=== PATIENT | female | born 1945 | race Asian ===

== ENCOUNTER 2024-05-24 10:58 | Outpatient (AMB) | payer MEDICARE, BC, SELFPAY ==
--- NOTE | 2024-05-24 11:02 | A.OFFVIS_ITS ---
Vital Signs 05/24/24 11:05 Height 4 ft 9 in Weight 111 lb BMI 24.0 BP 126/70 Blood Pressure Location Rt brachial Pulse 74 Pulse Source Pulse Oximeter Pulse Oximetry (%) 98 Oxygen Delivery Method Room Air Intake Visit Reasons: [id number] ENP-Movement Disorder Intake Note: patient referred by Dr. Santoro for movement disorder. MRI 08/01/22 scanned in referral Allergies No Known Allergies Allergy (Verified 05/24/24 11:06) Medication List - Last Reconciled 05/24/24 by Tanya Naidu MD cholecalciferol (vitamin D3) 25 mcg PO DAILY latanoprost 0.005% drps ophthalmic (eye) metoprolol succinate ER 100 mg PO DAILY nitroglycerin 0.3 mg sublingual Q5M PRN rosuvastatin 10 mg PO BEDTIME HPI Comments Details: 79y/o female comes for opinion regarding her progressive gait disorder.It started about 6 years ago -she felt her steps are shorter, she is stiff and slow. she also had multiple falls.she was seen at [facility] , had a trial of carbidopa/ levodopa for 3 months and had large volume LP with no response. she has some low back pain - sees [facility]. she denies any radiating pain. she has tingling in her feet when she is sleeping. No neck issues She denies any tremors. She denies any family h/o gait problems. she denies double vision , denies vertigo. SHe has occasional dizziness.she denies any speech or swallowing issues. Bowel movements are stable she has urinary urgency . she was seen by and Dr. Santoro at [facility]. 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 she used to do ballet and dancing as a child. 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 [facility] Medical History (Updated 05/24/24 @ 11:42 by Tanya Naidu MD) Gait abnormality Paraparesis Diarrhea Gait instability Glaucoma CAD (coronary artery disease) HTN (hypertension) Hyperlipidemia Surgical History History of heart artery stent H/O angioplasty Social History Alcohol intake: current Comment: occasional wine Patient Tobacco Use Status: Never used Tobacco Physical Exam Vital Signs: Last Vital Signs Pulse 74 05/24/24 11:05 BP 126/70 05/24/24 11:05 Pulse Ox 98 05/24/24 11:05 Oxygen Delivery Method Room Air 05/24/24 11:05 BMI result Body Mass Index 24.0 Const General: cooperative, healthy appearing, comfortable and no acute distress Nutritional Appearance: average body habitus Orientation/consciousness: patient oriented x3 Eyes Pupils: Equal, round and reactive pupils present Neuro Other: Gait- small steps guarded , narrow base , slow , drags her feet , like she has partial foot drop Dorsiflexion 4/5 plantar flexion 5/5 Mild increased tone rachid LE L>R Mild droopy eyelids General: patient oriented x3 and moves all extremities Cranial nerves: Yes Facial sensation intact/muscles of mastication intact, Yes E qual, round and reactive pupils present, Yes Bilaterally intact EOM present, Yes Nystagmus not present, Yes Normal facial strength present, Yes Midline tongue present, Yes Symmetric palate elevation present and Yes Ability to bilaterally elevate shoulders present Cognition (Neuro): normal cognition Motor exam (neuro): 5/5 motor strength present throughout Deep tendon reflexes (DTR's): Right triceps reflex intensity grade: 2+, Left triceps reflex intensity grade: 2+, Rt Biceps (C5, C6): 2+, Left biceps reflex intensity grade: 2+, Right brachioradialis reflex intensity grade: 2+, Left brachioradialis reflex intensity grade: 2+, Right patellar reflex intensity grade: 3+, Left patellar reflex intensity grade: 3+ and Right ankle reflex intensity grade: 3+ Coordination: [id number] test normal Assessment & Plan Assessment & Plan (1) Paraparesis: Comment: with mild spasticty ? post polio ? hereditary spastic parapareis Code(s): G82.20 - Paraplegia, unspecified Category: Medical (2) Gait abnormality: Code(s): R26.9 - Unspecified abnormalities of gait and mobility Category: Medical Plan Review images and EMG from [facility] Continue PT I will trial her on Baclofen 10mg qhs will consider referring to for possible Botox for her LE Medications: New baclofen 10 mg PO BEDTIME 30 tabs 5RF Coding Level of Care Code New Pt Level 4 (16481) Complex EM visit Add On G2211 Diagnoses Paraparesis G82.20 Gait abnormality R26.9
[2024-05-24 11:05] VITALS: BP 126/70; PULSE 74; O2SAT 98; BMI 24.0
--- OUTSIDE RECORDS SUMMARY | 2024-05-24 13:16 | XMS_ITS | Patient Health Record ---
Author Organization [facility] Address [address] [facility] [address] [place] [address] Care Team Providers Care Histology Technician Name Role Phone FLAQUITA RICE Primary Care Provider Jenn Vera Unavailable [phone] Allergies No Known Allergies Results Component Value Reference Range Notes Hemoglobin [id number] Reviewed date:04/08/2024 09:19:20 AM Interpretation: Performing Lab:[facility], [address] [facility], Phone - [phone], Director - MDJodry Notes/Report: Hemoglobin A1c 6.3 4.8-5.6 % . Prediabetes: 5.7 - 6.4 Diabetes: >6.4 Glycemic control for adults with diabetes: <7.0 Comp. Metabolic Panel ([id number] Reviewed date:09/03/2023 04:21:55 PM Interpretation: Performing Lab:[facility], [address] [facility], [place], Phone - [phone], Director - MDJodry Notes/Report: Glucose 112 70-99 mg/dL BUN 14 8-27 mg/dL Creatinine 0.89 0.57-1.00 mg/dL eGFR 67 >59 mL/min/1.73 BUN/Creatinine Ratio 16 12-28 Sodium 139 134-144 mmol/L Potassium 5.4 3.5-5.2 mmol/L Chloride 101 96-106 mmol/L Anion Gap 17.0 10.0-18.0 mmol/L Carbon Dioxide, Total 21 20-29 mmol/L Calcium 9.4 8.7-10.3 mg/dL Protein, Total 6.9 6.0-8.5 g/dL Albumin 4.3 3.8-4.8 g/dL Globulin, Total 2.6 1.5-4.5 g/dL A/G Ratio 1.7 1.2-2.2 Bilirubin, Total 0.4 0.0-1.2 mg/dL Alkaline Phosphatase 62 44-121 IU/L AST (SGOT) 36 0-40 IU/L ALT (SGPT) 23 0-32 IU/L LP+Non-HDL [id number] Reviewed date:09/03/2023 04:22:03 PM Interpretation: Performing Lab:[facility], [facility], Phone - [phone], Director - MDJodry Notes/Report: Cholesterol, Total 168 100-199 mg/dL Triglycerides 102 0-149 mg/dL HDL Cholesterol 60 >39 mg/dL VLDL Cholesterol Hung 18 5-40 mg/dL LDL Chol Calc (NIH) 90 0-99 mg/dL Non-HDL Cholesterol 108 0-129 mg/dL Albumin/Creatinine Ratio,Uri [id number] Reviewed date:09/03/2023 04:22:01 PM Interpretation: Performing Lab:[facility], [facility], [place], Phone - [phone], Director - MDJodry Notes/Report: Creatinine, Urine 86.1 Not Estab. mg/dL Albumin, Urine 5.5 Not Estab. ug/mL Alb/Creat Ratio 6 0-29 mg/g creat Normal: 0 - 29 Moderately increased: 30 - 300 Severely increased: >300 Hgb A1c with eAG Estimation- [id number] Reviewed date:09/03/2023 04:21:59 PM Interpretation: Performing Lab:[facility], [address] [place] [address], Phone - [phone], Director - MDJodry Notes/Report: Hemoglobin A1c 6.4 4.8-5.6 % . Prediabetes: 5.7 - 6.4 Diabetes: >6.4 Glycemic control for adults with diabetes: <7.0 Estim. Avg Glu (eAG) 137 Reason For Referral Reason dizziness - ATI Diagnosis 1 Dizziness and giddin ess (R42) Referral Organization [facility] Referring Provider First Name RICE Referring Provider Last Name LEATHA Referring Provider Speciality Internal M edicine Referred Provider Specialty Physical The rapist General Notes Referral faxed to AT I at F: [phone], Day Vega 06/23/2023 02:55:13 PM > Referral Priority Routine Reason dizziness Diagnosis 1 Dizziness and giddin ess (R42) Referral Organization [facility] Referring Provider First Name RICE Referring Provider Last Name [facility] Referring Provider Speciality Internal edicine Referred Provider Specialty Ear, nose an d throat surgeon General Notes Referral faxed to EN T surgeons at F: [phone], Day Vega 06/23/2023 02:53:19 PM > Referral Priority Routine Reason hearing test Diagnosis 1 Encounter for examin ation of ears and hearing without abnormal findings (Z01.10) Referral Organization [facility] Referring Provider First Name DWAYNE Referring Provider Last Name [facility] Referring Provider Speciality Internal edicine Referred Provider Specialty Audiologists General Notes Referral faxed to [facility] at F: [phone] Day Vega 06/23/2023 02:50:36 PM > Referral Priority Routine Reason Evaluation and manag ement Diagnosis 1 Other abnormalities of gait and mobility (R26.89) Referral Organization [facility] Referring Provider First Name DWAYNE Referring Provider Last Name [facility] Referring Provider [facility] Referred Provider Specialty Neurology General Notes Referral faxed to [facility] (Tanya Naidu MD) - Dept will call patient for scheduling., Olson Truamn 09/08/2023 11:53:25 AM > Referral Priority Routine Reason please evaluate and treat-ATI daniele Diagnosis 1 Gait instability (R2 6.81) Referral Organization [facility] Referring Provider First Name Jenn Referring Provider Last Name Jody Referred Provider Specialty Physical The rapist General Notes referral sent to [facility] physical therapy. Please contact patient for scheduling, Jayda Molina 04/12/2024 04:27:39 PM > Referral Priority Routine Medications Medication SIG (Take, Route, Frequency, Duration) Notes Start Date End Date Status Lisinopril 10 MG 1 tablet Orally Once a day for 30 Not-Taking Timolol Maleate 0.5 % (DAILY) 1 drop into affected eye Ophthalmic Once a day Active Vitamin D3 50 MCG (1999 UT) 1 tablet Orally Once a day Active Aspirin Adult Low Strength 81 MG 1 tablet Orally Once a day for 30 day(s) Active Latanoprost 0.005 % 1 drop into affected eye in the evening Ophthalmic Once a day Active Nitroglycerin 0.4 MG as directed Sublingual Active Caltrate 600+D 600-800 MG-UNIT 1 tablet with a meal Orally Once a day for 30 day(s) Active B Complex - as directed Orally Active Meclizine HCl 12.5 MG 1 tablet as needed Orally every 12 hrs for 30 days 05/29/2023 Active Metoprolol Succinate ER 50 MG 1 tablet Orally Once a day for 90 days Active Rosuvastatin Calcium 10 MG 1 tablet Orally Once a day Active Voltaren - - as directed Externally Apply 2 grams to affected area twice a day as needed for 30 days 09/12/2020 Not-Taking Alendronate Sodium 70 MG 1 tablet 30 min utes before the first food, beverage or medicine of the day dissolved in 4 ounces of water Orally Once a week Active Super B Complex one daily Not- Taking Culturelle - as directed Orally one capsule daily Active Immunizations Vaccine Route Administration Date Status Comme nts COVID Moderna Unknown 06/03/2020 Administered COVID Moderna Unknown 07/01/2020 Administered COVID Moderna Unknown 03/14/2021 Administered Flu Unknown 02/10/2022 Administered Flu Unknown 02/10/2022 Administered Flu Unknown 01/21/2023 Administered Flu Unknown 03/19/2016 Administered Flu High-Dose Unknown 12/01/2019 Administered Influenza, high dose seasonal Unknown 01/22/2018 Admini stered Influenza, high dose seasonal Unknown 01/28/2019 Admini stered Pneumococcal conjugate PCV 13 Unknown 07/02/2016 Admini stered Pneumococcal polysaccharide PPV23 Unknown 11/01/2012 Ad ministered Zoster Unknown 10/21/2011 Administered Social History Tobacco Use: Social History Observation Description Date Details (start date - stop date) Former Smoker NA - NA Tobacco Use/Smoking Question Answer Notes Are you a former smoker How long has it been since you last smoked? > 10 years Alcohol Screen (Audit-C) Question Answer Notes Did you have a drink contain ing alcohol in the past year? Yes How often did you have a dri nk containing alcohol in the past year? 4 or more times a week (4 points) How many drinks did you have on a typical day when you were drinking in the past year? 1 or 2 drinks (0 point) Points 4 Interpretation Positive Section Notes: i glass of wine a night i glass of wine a night i glass of wine a night i glass of wine a night i glass of wine a night i glass of wine a night i glass of wine a night i glass of wine a night i glass of wine a night i glass of wine a night i glass of wine a night Problems Problem Type SNOMED Code ICD Code Onset Dates Problem Status W/U Status Risk Notes Problem Glaucoma (34425799) Unspecified glaucoma (H40.9) Active confirmed Problem Hearing loss (97828363) Unspecified hearing loss, unspecified ear (H91.90) Active confirmed Problem Atherosclerotic heart disease of chilkoot coronary artery without angina pectoris (343650653595943) Atherosclerotic heart disease of chilkoot coronary artery without angina pectoris (I25.10) Active confirmed Problem Non-neoplastic nevus (807884232) Nevus, non-neoplastic (I78.1) Active confirmed Problem Vascular disorder of intestine (283788276) Vascular disorder of intestine, unspecified (K55.9) Active confirmed Problem Celiac disease (439118640) Celiac disease (K90.0) Active confirmed Problem Muscle weakness (63637042) Muscle weakness (generalized) (M62.81) Active confirmed Problem Age-related osteoporosis (216336021) Age-related osteoporosis without current pathological fracture (M81.0) Active confirmed Problem Abnormal gait (20902817) Other abnormalities of gait and mobility (R26.89) Active confirmed Problem Hyperlipidemia (55361919) Hyperlipidemia, unspecified (E78.5) Active confirmed Problem Essential hypertension (73952845) Essential (primary) hypertension (I10) Active confirmed Problem Abnormal gait (93600524) Gait instability (R26.81) Active confirmed Vital Signs Heart Rate 68 /min 04/12/2024 Temperature 95.1 degrees Fahrenheit 04/12/2024 Blood pressure diastolic 70 mm Hg 04/12/2024 Oximetry 95 % 04/12/2024 Height 57.01 in 04/12/2024 Blood pressure systolic 100 mm Hg 04/12/2024 Weight 110.2 lbs 04/12/2024 BMI 23.84 kg/m2 04/12/2024 Encounters Encounter Location Date Provider Diagnosis [facility] [address] [address] 04/05/[address] [place] [address] 05/29/2023 R[facility] Dizziness and giddin ess R42 ; Other fatigue R53.83 ; Muscle weakness (generalized) M62.81 ; Unspecified hearing loss, unspecified ear H91.90 and Essential (primary) hypertension I10 [address] [place] [address] 09/07/2023 RICE [facility] Encounter for genera l adult medical examination without abnormal findings Z00.00 ; Atherosclerotic heart disease of chilkoot coronary artery without angina pectoris I25.10 ; Essential (primary) hypertension I10 ; Hyperlipidemia, unspecified E78.5 ; Impaired fasting glucose R73.01 ; Unspecified glaucoma H40.9 ; Other abnormalities of gait and mobility R26.89 and Muscle weakness (generalized) M62.[address] [address] 04/12/2024 [facility] Atherosclerotic hear t disease of chilkoot coronary artery without angina pectoris I25.10 ; Essential (primary) hypertension I10 ; Hyperlipidemia, unspecified E78.5 ; Impaired fasting glucose R73.01 ; Unspecified glaucoma H40.9 ; Other abnormalities of gait and mobility R26.89 and Gait instability R26.[address] [address] 04/05/[address] [address] 04/12/2024 RICE [facility] Assessments Encounter Date Diagnosis (ICD Code) Assessment Notes Treatment Notes Treatment Clinical Notes Section Notes 05/29/2023 Dizziness and giddiness (ICD-10 - R42) Pia is a 78 year old lady with coronary artery disease, hypertension, hyperlipidemia and glaucoma here complaining of dizziness and fatigue. Plan is as follows: Hypertension. Blood pressure well controlled on current regimen. Dizziness. DDX neuropathy, gait instabilitty, degenerative changes inner ear. Advised slow movements. Nothing alarming at this point. Start Meclizine 12.5 MG PRN. Referred to ENT. Muscle weakness. Advised to touchbase with Neurology. She has gait instability and she uses a cane and referral to physical therapy Hearing loss. Referred to Audiology for hearing test. Fatigue. Blood work ordered to check for any reversible causes in the past and it was normal. General health concerns discussed with patient. Scribe services used to formulate this note under HIPAA compliance and under [place] law mandated for scribe services. Patient aware of service. Verbal consent and written consent taken from the patient. Patient understands and verbalizes understanding of the scribes services and all questions answered regarding scribes services. Patient agrees to use of scribes services. 05/29/2023 Other fatigue (ICD-10 - R53.83) Pia is a 78 year old lady with coronary artery disease, hypertension, hyperlipidemia and glaucoma here complaining of dizziness and fatigue. Plan is as follows: Hypertension. Blood pressure well controlled on current regimen. Dizziness. DDX neuropathy, gait instabilitty, degenerative changes inner ear. Advised slow movements. Nothing alarming at this point. Start Meclizine 12.5 MG PRN. Referred to ENT. Muscle weakness. Advised to touchbase with Neurology. She has gait instability and she uses a cane and referral to physical therapy Hearing loss. Referred to Audiology for hearing test. Fatigue. Blood work ordered to check for any reversible causes in the past and it was normal. General health concerns discussed with patient. Scribe services used to formulate this note under HIPAA compliance and under [place] law mandated for scribe services. Patient aware of service. Verbal consent and written consent taken from the patient. Patient understands and verbalizes understanding of the scribes services and all questions answered regarding scribes services. Patient agrees to use of scribes services. 09/07/2023 Atherosclerotic heart disease of chilkoot coronary artery without angina pectoris (ICD-10 - I25.10) Pia is a 78 year old lady with coronary artery disease, hypertension, hyperlipidemia and glaucoma here for Medicare annual wellness visit. Plan is as follows: Hypertension. Blood pressure well controlled on current regimen. EKG is normal sinus rhythm at [address]pm with no acute ST or T wave changes, normal bundle branch blocks, normal intervals Hyperlipidemia. Continue Rosuvastatin 10 MG once a day. Impaired fasting glucose. A1c 6.4. Fasting sugars 112. Dietary restrictions, regimental exercise and weight loss advised. check A1c. Glaucoma. s/p cataract surgery last year. She sees her senior marketing analyst regularly. Gait instability. She uses a cane to walk outside. Fall risk discussed. She went to physical therapy with some improvement. She also has a shuffling gait and she saw Dr. Geronimo and he was planning to have a Botox injection. She will be given referral to neurologist who specializes in movement disorders Dental screening. She sees dentist regularly. Breast cancer screening. She is up-to-date on her mammogram. Osteoporosis screening. She is up to date on BMD. Immunizations. She is up-to-date on her COVID and influenza vaccinations Advance directive. She is on DNR and her HCP is her daughter Debby Fontanez. [phone] General health concerns discussed with patient. Scribe services used to formulate this note under HIPAA compliance and under [place] law mandated for scribe services. Patient aware of service. Verbal consent and written consent taken from the patient. Patient understands and verbalizes understanding of the scribes services and all questions answered regarding scribes services. Patient agrees to use of scribes services. 09/07/2023 Encounter for general adult medical examination without abnormal findings (ICD-10 - Z00.00) Pia is a 78 year old lady with coronary artery disease, hypertension, hyperlipidemia and glaucoma here for Medicare annual wellness visit. Plan is as follows: Hypertension. Blood pressure well controlled on current regimen. EKG is normal sinus rhythm at 62 bpm with no acute ST or T wave changes, normal bundle branch blocks, normal intervals Hyperlipidemia. Continue Rosuvastatin 10 MG once a day. Impaired fasting glucose. A1c 6.4. Fasting sugars 112. Dietary restrictions, regimental exercise and weight loss advised. check A1c. Glaucoma. s/p cataract surgery last year. She sees her senior marketing analyst regularly. Gait instability. She uses a cane to walk outside. Fall risk discussed. She went to physical therapy with some improvement. She also has a shuffling gait and she saw Dr. Geronimo and he was planning to have a Botox injection. She will be given referral to neurologist who specializes in movement disorders Dental screening. She sees dentist regularly. Breast cancer screening. She is up-to-date on her mammogram. Osteoporosis screening. She is up to date on BMD. Immunizations. She is up-to-date on her COVID and influenza vaccinations Advance directive. She is on DNR and her HCP is her daughter Debby Fontanez. [phone] General health concerns discussed with patient. Scribe services used to formulate this note under HIPAA compliance and under [place] law mandated for scribe services. Patient aware of service. Verbal consent and written consent taken from the patient. Patient understands and verbalizes understanding of the scribes services and all questions answered regarding scribes services. Patient agrees to use of scribes services. 04/12/2024 Atherosclerotic heart disease of chilkoot coronary artery without angina pectoris (ICD-10 - I25.10) Pia is a 78 year old lady with coronary artery disease, hypertension, hyperlipidemia and glaucoma here for follow-up. Plan is as follows: CAD: - Stable at this point. Continue on the same regimen. Hypertension. -Blood pressure well controlled on current regimen. Continue on the same regimen. Hyperlipidemia. -Continue Rosuvastatin 10 MG once a day. Impaired fasting glucose. -A1c 6.4. Fasting sugars 112. Dietary restrictions, regimental exercise and weight loss advised. check A1c. Glaucoma. -s/p cataract surgery last year. She sees her senior marketing analyst regularly. Gait instability. -She uses a cane to walk outside. She is interested in PT. -She will start seeing t disorders-botox injections. General health concerns discussed with patient. I have rendered the services for this patient under direct supervision of Dr. Guerra, who did not see the patient but was available upon request 09/07/2023 Essential (primary) hypertension (ICD-10 - I10) Pia is a 78 year old lady with coronary artery disease, hypertension, hyperlipidemia and glaucoma here for Medicare annual wellness visit. Plan is as follows: Hypertension. Blood pressure well controlled on current regimen. EKG is normal sinus rhythm at 62 bpm with no acute ST or T wave changes, normal bundle branch blocks, normal intervals Hyperlipidemia. Continue Rosuvastatin 10 MG once a day. Impaired fasting glucose. A1c 6.4. Fasting sugars 112. Dietary restrictions, regimental exercise and weight loss advised. check A1c. Glaucoma. s/p cataract surgery last year. She sees her senior marketing analyst regularly. Gait instability. She uses a cane to walk outside. Fall risk discussed. She went to physical therapy with some improvement. She also has a shuffling gait and she saw Dr. Geronimo and he was planning to have a Botox injection. She will be given referral to neurologist who specializes in movement disorders Dental screening. She sees dentist regularly. Breast cancer screening. She is up-to-date on her mammogram. Osteoporosis screening. She is up to date on BMD. Immunizations. She is up-to-date on her COVID and influenza vaccinations Advance directive. She is on DNR and her HCP is her daughter Debby Fontanez. [phone] General health concerns discussed with patient. Scribe services used to formulate this note under HIPAA compliance and under [place] law mandated for scribe services. Patient aware of service. Verbal consent and written consent taken from the patient. Patient understands and verbalizes understanding of the scribes services and all questions answered regarding scribes services. Patient agrees to use of scribes services. 04/12/2024 Essential (primary) hypertension (ICD-10 - I10) Pia is a 78 year old lady with coronary artery disease, hypertension, hyperlipidemia and glaucoma here for follow-up. Plan is as follows: CAD: - Stable at this point. Continue on the same regimen. Hypertension. -Blood pressure well controlled on current regimen. Continue on the same regimen. Hyperlipidemia. -Continue Rosuvastatin 10 MG once a day. Impaired fasting glucose. -A1c 6.4. Fasting sugars 112. Dietary restrictions, regimental exercise and weight loss advised. check A1c. Glaucoma. -s/p cataract surgery last year. She sees her senior marketing analyst regularly. Gait instability. -She uses a cane to walk outside. She is interested in PT. -She will start seeing -laurimen t disorders-botox injections. General health concerns discussed with patient. I have rendered the services for this patient under direct supervision of Dr. Guerra, who did not see the patient but was available upon request 05/29/2023 Muscle weakness (generalized) (ICD-10 - M62.81) Pia is a 78 year old lady with coronary artery disease, hypertension, hyperlipidemia and glaucoma here complaining of dizziness and fatigue. Plan is as follows: Hypertension. Blood pressure well controlled on current regimen. Dizziness. DDX neuropathy, gait instabilitty, degenerative changes inner ear. Advised slow movements. Nothing alarming at this point. Start Meclizine 12.5 MG PRN. Referred to ENT. Muscle weakness. Advised to touchbase with Neurology. She has gait instability and she uses a cane and referral to physical therapy Hearing loss. Referred to Audiology for hearing test. Fatigue. Blood work ordered to check for any reversible causes in the past and it was normal. General health concerns discussed with patient. Scribe services used to formulate this note under HIPAA compliance and under [place] law mandated for scribe services. Patient aware of service. Verbal consent and written consent taken from the patient. Patient understands and verbalizes understanding of the scribes services and all questions answered regarding scribes services. Patient agrees to use of scribes services. 09/07/2023 Hyperlipidemia, unspecified (ICD-10 - E78.5) Pia is a 78 year old lady with coronary artery disease, hypertension, hyperlipidemia and glaucoma here for Medicare annual wellness visit. Plan is as follows: Hypertension. Blood pressure well controlled on current regimen. EKG is normal sinus rhythm at [address]pm with no acute ST or T wave changes, normal bundle branch blocks, normal intervals Hyperlipidemia. Continue Rosuvastatin 10 MG once a day. Impaired fasting glucose. A1c 6.4. Fasting sugars 112. Dietary restrictions, regimental exercise and weight loss advised. check A1c. Glaucoma. s/p cataract surgery last year. She sees her senior marketing analyst regularly. Gait instability. She uses a cane to walk outside. Fall risk discussed. She went to physical therapy with some improvement. She also has a shuffling gait and she saw Dr. Geronimo and he was planning to have a Botox injection. She will be given referral to neurologist who specializes in movement disorders Dental screening. She sees dentist regularly. Breast cancer screening. She is up-to-date on her mammogram. Osteoporosis screening. She is up to date on BMD. Immunizations. She is up-to-date on her COVID and influenza vaccinations Advance directive. She is on DNR and her HCP is her daughter Debby Fontanez. [phone] General health concerns discussed with patient. Scribe services used to formulate this note under HIPAA compliance and under [place] law mandated for scribe services. Patient aware of service. Verbal consent and written consent taken from the patient. Patient understands and verbalizes understanding of the scribes services and all questions answered regarding scribes services. Patient agrees to use of scribes services. 05/29/2023 Unspecified hearing loss, unspecified ear (ICD-10 - H91.90) Pia is a 78 year old lady with coronary artery disease, hypertension, hyperlipidemia and glaucoma here complaining of dizziness and fatigue. Plan is as follows: Hypertension. Blood pressure well controlled on current regimen. Dizziness. DDX neuropathy, gait instabilitty, degenerative changes inner ear. Advised slow movements. Nothing alarming at this point. Start Meclizine 12.5 MG PRN. Referred to ENT. Muscle weakness. Advised to touchbase with Neurology. She has gait instability and she uses a cane and referral to physical therapy Hearing loss. Referred to Audiology for hearing test. Fatigue. Blood work ordered to check for any reversible causes in the past and it was normal. General health concerns discussed with patient. Scribe services used to formulate this note under HIPAA compliance and under [place] law mandated for scribe services. Patient aware of service. Verbal consent and written consent taken from the patient. Patient understands and verbalizes understanding of the scribes services and all questions answered regarding scribes services. Patient agrees to use of scribes services. 04/12/2024 Hyperlipidemia, unspecified (ICD-10 - E78.5) Pia is a 78 year old lady with coronary artery disease, hypertension, hyperlipidemia and glaucoma here for follow-up. Plan is as follows: CAD: - Stable at this point. Continue on the same regimen. Hypertension. -Blood pressure well controlled on current regimen. Continue on the same regimen. Hyperlipidemia. -Continue Rosuvastatin 10 MG once a day. Impaired fasting glucose. -A1c 6.4. Fasting sugars 112. Dietary restrictions, regimental exercise and weight loss advised. check A1c. Glaucoma. -s/p cataract surgery last year. She sees her senior marketing analyst regularly. Gait instability. -She uses a cane to walk outside. She is interested in PT. -She will start seeing t disorders-botox injections. General health concerns discussed with patient. I have rendered the services for this patient under direct supervision of Dr. Guerra, who did not see the patient but was available upon request 09/07/2023 Impaired fasting glucose (ICD-10 - R73.01) Pia is a 78 year old lady with coronary artery disease, hypertension, hyperlipidemia and glaucoma here for Medicare annual wellness visit. Plan is as follows: Hypertension. Blood pressure well controlled on current regimen. EKG is normal sinus rhythm at [address] with no acute [address] or T wave changes, normal bundle branch blocks, normal intervals Hyperlipidemia. Continue Rosuvastatin 10 MG once a day. Impaired fasting glucose. A1c 6.4. Fasting sugars 112. Dietary restrictions, regimental exercise and weight loss advised. check A1c. Glaucoma. s/p cataract surgery last year. She sees her senior marketing analyst regularly. Gait instability. She uses a cane to walk outside. Fall risk discussed. She went to physical therapy with some improvement. She also has a shuffling gait and she saw Dr. Geronimo and he was planning to have a Botox injection. She will be given referral to neurologist who specializes in movement disorders Dental screening. She sees dentist regularly. Breast cancer screening. She is up-to-date on her mammogram. Osteoporosis screening. She is up to date on BMD. Immunizations. She is up-to-date on her COVID and influenza vaccinations Advance directive. She is on DNR and her HCP is her daughter Debby Fontanez. [phone] General health concerns discussed with patient. Scribe services used to formulate this note under HIPAA compliance and under [place] law mandated for scribe services. Patient aware of service. Verbal consent and written consent taken from the patient. Patient understands and verbalizes understanding of the scribes services and all questions answered regarding scribes services. Patient agrees to use of scribes services. 04/12/2024 Impaired fasting glucose (ICD-10 - R73.01) Pia is a 78 year old lady with coronary artery disease, hypertension, hyperlipidemia and glaucoma here for follow-up. Plan is as follows: CAD: - Stable at this point. Continue on the same regimen. Hypertension. -Blood pressure well controlled on current regimen. Continue on the same regimen. Hyperlipidemia. -Continue Rosuvastatin 10 MG once a day. Impaired fasting glucose. -A1c 6.4. Fasting sugars 112. Dietary restrictions, regimental exercise and weight loss advised. check A1c. Glaucoma. -s/p cataract surgery last year. She sees her senior marketing analyst regularly. Gait instability. -She uses a cane to walk outside. She is interested in PT. -She will start seeing t disorders-botox injections. General health concerns discussed with patient. I have rendered the services for this patient under direct supervision of Dr. Guerra, who did not see the patient but was available upon request 05/29/2023 Essential (primary) hypertension (ICD-10 - I10) Pia is a 78 year old lady with coronary artery disease, hypertension, hyperlipidemia and glaucoma here complaining of dizziness and fatigue. Plan is as follows: Hypertension. Blood pressure well controlled on current regimen. Dizziness. DDX neuropathy, gait instabilitty, degenerative changes inner ear. Advised slow movements. Nothing alarming at this point. Start Meclizine 12.5 MG PRN. Referred to ENT. Muscle weakness. Advised to touchbase with Neurology. She has gait instability and she uses a cane and referral to physical therapy Hearing loss. Referred to Audiology for hearing test. Fatigue. Blood work ordered to check for any reversible causes in the past and it was normal. General health concerns discussed with patient. Scribe services used to formulate this note under HIPAA compliance and under [place] law mandated for scribe services. Patient aware of service. Verbal consent and written consent taken from the patient. Patient understands and verbalizes understanding of the scribes services and all questions answered regarding scribes services. Patient agrees to use of scribes services. 09/07/2023 Unspecified glaucoma (ICD-10 - H40.9) Pia is a 78 year old lady with coronary artery disease, hypertension, hyperlipidemia and glaucoma here for Medicare annual wellness visit. Plan is as follows: Hypertension. Blood pressure well controlled on current regimen. EKG is normal sinus rhythm at 62 bpm with no acute ST or T wave changes, normal bundle branch blocks, normal intervals Hyperlipidemia. Continue Rosuvastatin 10 MG once a day. Impaired fasting glucose. A1c 6.4. Fasting sugars 112. Dietary restrictions, regimental exercise and weight loss advised. check A1c. Glaucoma. s/p cataract surgery last year. She sees her senior marketing analyst regularly. Gait instability. She uses a cane to walk outside. Fall risk discussed. She went to physical therapy with some improvement. She also has a shuffling gait and she saw Dr. Geronimo and he was planning to have a Botox injection. She will be given referral to neurologist who specializes in movement disorders Dental screening. She sees dentist regularly. Breast cancer screening. She is up-to-date on her mammogram. Osteoporosis screening. She is up to date on BMD. Immunizations. She is up-to-date on her COVID and influenza vaccinations Advance directive. She is on DNR and her HCP is her daughter Debby Fontanez. [phone] General health concerns discussed with patient. Scribe services used to formulate this note under HIPAA compliance and under [place] law mandated for scribe services. Patient aware of service. Verbal consent and written consent taken from the patient. Patient understands and verbalizes understanding of the scribes services and all questions answered regarding scribes services. Patient agrees to use of scribes services. 04/12/2024 Unspecified glaucoma (ICD-10 - H40.9) Pia is a 78 year old lady with coronary artery disease, hypertension, hyperlipidemia and glaucoma here for follow-up. Plan is as follows: CAD: - Stable at this point. Continue on the same regimen. Hypertension. -Blood pressure well controlled on current regimen. Continue on the same regimen. Hyperlipidemia. -Continue Rosuvastatin 10 MG once a day. Impaired fasting glucose. -A1c 6.4. Fasting sugars 112. Dietary restrictions, regimental exercise and weight loss advised. check A1c. Glaucoma. -s/p cataract surgery last year. She sees her senior marketing analyst regularly. Gait instability. -She uses a cane to walk outside. She is interested in PT. -She will start seeing -laurimen t disorders-botox injections. General health concerns discussed with patient. I have rendered the services for this patient under direct supervision of Dr. Guerra, who did not see the patient but was available upon request 04/12/2024 Other abnormalities of gait and mobility (ICD-10 - R26.89) Pia is a 78 year old lady with coronary artery disease, hypertension, hyperlipidemia and glaucoma here for follow-up. Plan is as follows: CAD: - Stable at this point. Continue on the same regimen. Hypertension. -Blood pressure well controlled on current regimen. Continue on the same regimen. Hyperlipidemia. -Continue Rosuvastatin 10 MG once a day. Impaired fasting glucose. -A1c 6.4. Fasting sugars 112. Dietary restrictions, regimental exercise and weight loss advised. check A1c. Glaucoma. -s/p cataract surgery last year. She sees her senior marketing analyst regularly. Gait instability. -She uses a cane to walk outside. She is interested in PT. -She will start seeing -janes t disorders-botox injections. General health concerns discussed with patient. I have rendered the services for this patient under direct supervision of Dr. Guerra, who did not see the patient but was available upon request 09/07/2023 Other abnormalities of gait and mobility (ICD-10 - R26.89) Pia is a 78 year old lady with coronary artery disease, hypertension, hyperlipidemia and glaucoma here for Medicare annual wellness visit. Plan is as follows: Hypertension. Blood pressure well controlled on current regimen. EKG is normal sinus rhythm at [address] bpm with no acute ST or T wave changes, normal bundle branch blocks, normal intervals Hyperlipidemia. Continue Rosuvastatin 10 MG once a day. Impaired fasting glucose. A1c 6.4. Fasting sugars 112. Dietary restrictions, regimental exercise and weight loss advised. check A1c. Glaucoma. s/p cataract surgery last year. She sees her senior marketing analyst regularly. Gait instability. She uses a cane to walk outside. Fall risk discussed. She went to physical therapy with some improvement. She also has a shuffling gait and she saw Dr. Geronimo and he was planning to have a Botox injection. She will be given referral to neurologist who specializes in movement disorders Dental screening. She sees dentist regularly. Breast cancer screening. She is up-to-date on her mammogram. Osteoporosis screening. She is up to date on BMD. Immunizations. She is up-to-date on her COVID and influenza vaccinations Advance directive. She is on DNR and her HCP is her daughter Debby Fontanez. [phone] General health concerns discussed with patient. Scribe services used to formulate this note under HIPAA compliance and under [place] law mandated for scribe services. Patient aware of service. Verbal consent and written consent taken from the patient. Patient understands and verbalizes understanding of the scribes services and all questions answered regarding scribes services. Patient agrees to use of scribes services. 09/07/2023 Muscle weakness (generalized) (ICD-10 - M62.81) Pia is a 78 year old lady with coronary artery disease, hypertension, hyperlipidemia and glaucoma here for Medicare annual wellness visit. Plan is as follows: Hypertension. Blood pressure well controlled on current regimen. EKG is normal sinus rhythm at 62 bpm with no acute ST or T wave changes, normal bundle branch blocks, normal intervals Hyperlipidemia. Continue Rosuvastatin 10 MG once a day. Impaired fasting glucose. A1c 6.4. Fasting sugars 112. Dietary restrictions, regimental exercise and weight loss advised. check A1c. Glaucoma. s/p cataract surgery last year. She sees her senior marketing analyst regularly. Gait instability. She uses a cane to walk outside. Fall risk discussed. She went to physical therapy with some improvement. She also has a shuffling gait and she saw Dr. Geronimo and he was planning to have a Botox injection. She will be given referral to neurologist who specializes in movement disorders Dental screening. She sees dentist regularly. Breast cancer screening. She is up-to-date on her mammogram. Osteoporosis screening. She is up to date on BMD. Immunizations. She is up-to-date on her COVID and influenza vaccinations Advance directive. She is on DNR and her HCP is her daughter Debby Fontanez. [phone] General health concerns discussed with patient. Scribe services used to formulate this note under HIPAA compliance and under [place] law mandated for scribe services. Patient aware of service. Verbal consent and written consent taken from the patient. Patient understands and verbalizes understanding of the scribes services and all questions answered regarding scribes services. Patient agrees to use of scribes services. 04/12/2024 Gait instability (ICD-10 - R26.81) iPa is a 78 year old lady with coronary artery disease, hypertension, hyperlipidemia and glaucoma here for follow-up. Plan is as follows: CAD: - Stable at this point. Continue on the same regimen. Hypertension. -Blood pressure well controlled on current regimen. Continue on the same regimen. Hyperlipidemia. -Continue Rosuvastatin 10 MG once a day. Impaired fasting glucose. -A1c 6.4. Fasting sugars 112. Dietary restrictions, regimental exercise and weight loss advised. check A1c. Glaucoma. -s/p cataract surgery last year. She sees her senior marketing analyst regularly. Gait instability. -She uses a cane to walk outside. She is interested in PT. -She will start seeing t disorders-botox injections. General health concerns discussed with patient. I have rendered the services for this patient under direct supervision of Dr. Guerra, who did not see the patient but was available upon request Plan Of Treatment Pending Test Test Name Order Date Electrocardiogram (EKG) 09/23/2017 BASIC METABOLIC PANEL 10/27/2018 Future Test Test Name Order Date COMPREHENSIVE METABOLIC PANEL 08/01/2021 HEMOGLOBIN A1C WITH EST GLUCOSE 08/02/19 22 LIPID PANEL 08/01/2021 MICROALBUMIN, URINE 08/01/2021 COMPREHENSIVE METABOLIC PANEL 03/06/2022 HEMOGLOBIN A1C WITH EST GLUCOSE 03/06/20 22 LIPID PANEL 03/06/2022 MICROALBUMIN, URINE 03/06/2022 HEMOGLOBIN A1C WITH EST GLUCOSE 09/06/19 23 COMPREHENSIVE METABOLIC PANEL 03/04/2023 HEMOGLOBIN A1C WITH EST GLUCOSE 03/04/20 23 LIPID PANEL 03/04/2023 MICROALBUMIN, URINE 03/04/2023 CBC (COMPLETE BLOOD COUNT) 05/29/2023 COMPREHENSIVE METABOLIC PANEL 05/29/2023 HEMOGLOBIN A1C WITH EST GLUCOSE 05/29/19 24 LIPID PANEL 05/29/2023 MICROALBUMIN, URINE 05/29/2023 Next Appt Details Provider Name:Jenn Andujarkylie prieto, 09/13/2024 02:00:00 PM, [address] [place] [address], [phone], Insurance Providers Payer Name Payer Address Payer Phone Subscriber Number Group Number Insured Name Patient Relationship to Insured Coverage Start Date Coverage End Date Medicare [address] [place] [phone] [phone] [id number] Pia Fontanez Self - patient is the insured 2 [facility] [address] [place] [address] [phone] [id number] Pia Fontanez Self - patient is the insured 8 Medical (General) History Medical History History ICD Code Atherosclerotic heart diseas e of [place] coronary artery without angina pectoris and see Dr Quiñones Other fatigue Hyperlipidemia, unspecified Essential (primary) hypertension Irritable bowel syndrome without diarrhe a Low back pain Age-related osteoporosis without current pathological fracture CAD. Proximal left circumfle x stent in 2000. Proximal LAD stent 2000. MIKA proximal RCA 2019 at [facility]. 70% in-stent restenosis in LAD. PD See Dr Larry Santoro at [facility] Surgical History Surgery Date(Month/Year) cholecystectomy ear surgery balloon angioplasty x2
--- OUTSIDE RECORDS SUMMARY | 2024-05-24 13:16 | XMS_ITS ---
Author Organization [facility] Address [address] [place] [id number] Care Team Providers [employer] Representative Name Role Phone DWAYNE SAMS Primary Care Provider REASON FOR VISIT Physical Therapy Encounters Encounter Location Date Provider Diagnosis [facility] [address] [facility] [address] [place] [address] 04/12/2024 DWAYNE SAMS Plan Of Treatment Next Appt Details Provider Name:Jenn prieto, 09/13/2024 02:00:00 PM, [address] [place] [address] [address], [place], [phone], Progress Notes * Santa FONTANEZOB:1945 (79 yo F)Acc No.[id number]:04/12/2024 Patient:?Pia FONTANEZ :1945???Age:79 Y???Sex:Female Address:[address] [place] [id number] * true * Date:? Generated for Printi jeremias/Luciana/eTransmitting on:?05/24/2024 01:16 PM EST
--- OUTSIDE RECORDS SUMMARY | 2024-05-24 13:16 | XMS_ITS ---
Author Organization [facility] Address [address] [place] [address] Care Team Providers Care Informatics Scientist Name Role Phone LEATHADee Dee RICE Primary Care Provider [phone] Jenn Vera Unavailable [phone] Allergies No Known Allergies Reason For Referral Reason please evaluate and treat-[facility] florinamuscogee Diagnosis 1 Gait instability (R2 6.81) Referral Organization [facility] In Aleyda john Referring Provider First Name Jenn Referring Provider Last Name Jody Referred Provider Specialty Physical The rapist General Notes referral sent to [facility] physical therapy. Please contact patient for scheduling, Jayda Molina 04/12/2024 04:27:39 PM > Referral Priority Routine REASON FOR VISIT 6 month f/u Medications Medication SIG (Take, Route, Frequency, Duration) Notes Start Date End Date Status Vitamin D3 50 MCG (1999 UT) 1 tablet Orally Once a day Active B Complex - as directed Orally Active Rosuvastatin Calcium 10 MG 1 tablet Orally Once a day Active Alendronate Sodium 70 MG 1 tablet 30 min utes before the first food, beverage or medicine of the day dissolved in 4 ounces of water Orally Once a week Active Culturelle - as directed Orally one capsule daily Active Lisinopril 10 MG 1 tablet Orally Once a day for 30 Not-Taking Meclizine HCl 12.5 MG 1 tablet as needed Orally every 12 hrs for 30 days 05/29/2023 Active Metoprolol Succinate ER 50 MG 1 tablet Orally Once a day for 90 days Active Voltaren - - as directed Externally Apply 2 grams to affected area twice a day as needed for 30 days 09/12/2020 Not-Taking Super B Complex one daily Not- Taking Timolol Maleate 0.5 % (DAILY) 1 drop into affected eye Ophthalmic Once a day Active Aspirin Adult Low Strength 81 MG 1 tablet Orally Once a day for 30 day(s) Active Latanoprost 0.005 % 1 drop into affected eye in the evening Ophthalmic Once a day Active Nitroglycerin 0.4 MG as directed Sublingual Active Caltrate 600+D 600-800 MG-UNIT 1 tablet with a meal Orally Once a day for 30 day(s) Active Social History Tobacco Use: Social History Observation [...] Notes: i glass of wine a night Problems Problem Type SNOMED Code ICD Code Onset Dates Problem Status W/U Status Risk Notes Problem Abnormal gait (90314414) Gait instability (R26.81) Active confirmed Vital Signs Temperature 95.1 degrees Fahrenheit 04/12/19 25 Oximetry 95 % 04/12/2024 Heart Rate 68 /min 04/12/2024 Blood pressure systolic 100 mm Hg 04/12/19 25 Blood pressure diastolic 70 mm Hg 025 Weight 110.2 lbs 04/12/2024 BMI 23.84 kg/m2 04/12/2024 Height 57.01 in 04/12/2024 Encounters Encounter Location Date Provider Diagnosis [facility] [address] [place] [address] 04/12/2024 Jenn Vera Atherosclerotic hear t disease of [place] coronary artery without angina pectoris I25.10 ; Essential (primary) hypertension I10 ; Hyperlipidemia, unspecified E78.5 ; Impaired fasting glucose R73.01 ; Unspecified glaucoma H40.9 ; Other abnormalities of gait and mobility R26.89 and Gait instability R26.81 Assessments Encounter Date Diagnosis (ICD Code) Assessment Notes Treatment Notes Treatment Clinical Notes Section Notes 04/12/2024 Atherosclerotic heart disease of [place] coronary artery without angina pectoris (ICD-10 - [...] cataract surgery last year. She sees her bar machine operator regularly. Gait instability. -She uses a cane to walk outside. She is interested in PT. -She will start seeing Dr.Athreya-movemen cuauhtemoc pacheco-botox injections. General health concerns discussed with patient. I have rendered the services for this patient under direct supervision of Dr. Sams, who did not see the patient but was available upon request 04/12/2024 Essential (primary) hypertension (ICD-10 - I10) [...] cataract surgery last year. She sees her bar machine operator regularly. Gait instability. -She uses a cane to walk outside. She is interested in PT. -She will start seeing Dr.Athreya-movemen cuauhtemoc pacheco-botox injections. General health concerns discussed with patient. I have rendered the services for this patient under direct supervision of Dr. Sams, who did not see the patient but was available upon request 04/12/2024 Hyperlipidemia, unspecified (ICD-10 - E78.5) Pia [...] cataract surgery last year. She sees her bar machine operator regularly. Gait instability. -She uses a cane to walk outside. She is interested in PT. -She will start seeing Dr.Athreya-movemen cuauhtemoc pacheco-botox injections. General health concerns discussed with patient. I have rendered the services for this patient under direct supervision of Dr. Sams, who did not see the patient but was available upon request 04/12/2024 Impaired fasting glucose (ICD-10 - R73.01) [...] cataract surgery last year. She sees her bar machine operator regularly. Gait instability. -She uses a cane to walk outside. She is interested in PT. -She will start seeing Dr.Athreya-movemen cuauhtemoc pacheco-botox injections. General health concerns discussed with patient. I have rendered the services for this patient under direct supervision of Dr. Sams, who did not see the patient but was available upon request 04/12/2024 Unspecified glaucoma (ICD-10 - H40.9) Pia [...] cataract surgery last year. She sees her bar machine operator regularly. Gait instability. -She uses a cane to walk outside. She is interested in PT. -She will start seeing Dr.Athreya-movemen cuauhtemoc pacheco-botox injections. General health concerns discussed with patient. I have rendered the services for this patient under direct supervision of Dr. Sams, who did not see the patient but [...] cataract surgery last year. She sees her bar machine operator regularly. Gait instability. -She uses a cane to walk outside. She is interested in PT. -She will start seeing Dr.Athreya-movemen cuauhtemoc pacheco-botox injections. General health concerns discussed with patient. I have rendered the services for this patient under direct supervision of Dr. Sams, who did not see the patient but was available upon request 04/12/2024 Gait instability (ICD-10 - R26.81) Pia is a 78 year old lady [...] cataract surgery last year. She sees her bar machine operator regularly. Gait instability. -She uses a cane to walk outside. She is interested in PT. -She will start seeing Dr.Athreya-movemen cuauhtemoc pacheco-botox injections. General health concerns discussed with patient. I have rendered the services for this patient under direct supervision of Dr. Sams, who did not see the patient but was available upon request Plan Of Treatment Referrals Referral Date Details 04/12/2024 04/12/2024, please e valuate and treat-ATKraig durant Next Appt Details Follow Up: schedule iesha bhavesh vernon, Reason: Provider Name:Jenn Andujarkylie conner, 09/13/2024 02:00:00 PM, [address] [place] [address], [phone], Progress Notes * Cely FONTANEZAudreyOB:1945 (79 yo F)Acc No.[id number]:04/12/2024 Progress Notes Patient:?Pia FONTANEZ Provider:?Jenn Vera :1945???Age:79 Y???Sex:Female D ate:04/12/2024 Address:[address] [place], [place] [id number] Pcp:DWAYNE SAMS Subjective: * Chief Complaints: * ???6 month f/u * HPI: ???Internal Medicine:?Pia is a 79 year old lady with coronary artery disease, hypertension, hyperlipidemia and glaucoma here for follow-up. She is in her usual state of health. No systemic or constitutional symptoms. Neurocognitive functions stable. She is physically active but has a hard time walking. Her weight is stable. Denies PND, orthopnea or pedal edema. She uses a cane to walk. No history of fall. She does not need help with ADLs and IADLs. She does not appear anxious or depressed. She sleeps well, appetite is good. No GI or symptoms. She denies any other active issues or concerns. * ROS:?General/Constitutional:?Overall health?Good.?Change in appetite?denies.?Chills?denies.?Fatigue?denies.?Fever?denies.?Night sweats?denies.?Sleep disturbance?denies.?Weight gain?denies.?Weight loss?admits, 5?pounds.?Neurologic:?Difficulty speaking?denies.?Dizziness?denies.?Gait abnormality?denies.?Headache?denies.?Loss of strength?admits.?Memory loss?denies.?Seizures?denies.?Tingling/Numbness?denies .?Ophthalmologic:?Blurred vision?denies.?Discharge?denies.?Dry eye?denies.?Red eye?denies.?ENT:?Change in Voice?Denies.?Cold Symptoms?Denies.?Cough?Denies.?Dizziness?Admits.?Nasal Congestion?Denies.?Otalgia?Denies.?postnasal drip?Denies.?Blocked ear?denies.?Nosebleed?denies.?Snoring?denies.?Cardiovascular:?Diaphoresis?Denies.?Pedal Edema?Denies.?PND (Paroxsymal nocturnal dyspnea)?Denies.?Chest pain?denies.?Difficulty laying flat?denies.?Dyspnea on exertion?denies.?Heart murmur?denies.?Orthopnea?denies.?Respiratory:?Snoring?denies.?Asthma?denies.?Cough?denies.?Shortness of breath with exertion?denies.?Sputum production?denies.?Wheezing?denies.?Gastrointestinal:?Change in bowel habits?denies.?Constipation?denies.?Decreased appetite?denies.?Diarrhea?denies.?Heartburn?denies.?Nausea?denies.?Vomiting?jason es.?Musculoskeletal:?tingling/numbness?Denies.?myalgias?Denies.?Joint Swelling?Denies.?extremeties?normal.?Arthritis?denies.?Back problems?denies.?Carpal tunnel?denies.?Joint stiffness?denies.?Muscle aches?denies.?Endocrine:?Bowel Changes?Denies.?Breast Discharge?Denies.?poor libido?Denies.?Cold intolerance?denies.?Excessive sweating?denies.?Excessive thirst?denies.?Frequent urination?denies.?Thyroid problems?denies.?Skin:?Bruising?Denies.?Eczema?denies.?Hair changes?denies.?Rash?denies.?Skin lesion(s)?denies.?Psychiatric:?Anxiety?denies.?Depressed mood?denies.?Difficulty sleeping?denies.?Nervous breakdown?denies.?Substance abuse?denies.?Urology:?abnormal menstrual bleeding?denies.?blood in urine?denies.?burning on urination?denies.?difficulty urinating?denies.?discharge?denies.?dysuria?denies.? * Medical History:? * Surgical History:?cholecyste ctomy ear surgery balloon angioplasty x2 * Hospitalization/Major Diagno stic Procedure:? * Family History:?Father: dece ased, lung cancer, diagnosed with Hypertension.?Mother: alive, hyperlipidemia.? * Social History:?Tobacco Use:?Tobacco Use/Smoking?Are you a?former smoker ?How long has it been since you last smoked??> 10 years ???Drugs/Alcohol:?Drugs?Have you used drugs other than those for medical reasons in the past 12 months??No ?Alcohol Screen (Audit-C)?Did you have a drink containing alcohol in the past year??Yes ?How often did you have a drink containing alcohol in the past year??4 or more times a week (4 points) ?How many drinks did you have on a typical day when you were drinking in the past year??1 or 2 drinks (0 point) ?Points?4 ?Interpretation?Positive ???Miscellaneous:?Exercise: Patient exercises. walks. ?Living with: alone. ???i glass of wine a night. * Medications:?TakingB Complex - Capsule as directed Orally Alendronate Sodium 70 MG Tablet Effervescent 1 tablet 30 minutes before the first food, beverage or medicine of the day dissolved in 4 ounces of water Orally Once a week Rosuvastatin Calcium 10 MG Tablet 1 tablet Orally Once a day Culturelle - Capsule as directed Orally one capsule daily Vitamin D3 50 MCG (2000 UT) Tablet Chewable 1 tablet Orally Once a day Timolol Maleate 0.5 % (DAILY) Solution 1 drop into affected eye Ophthalmic Once a day Latanoprost 0.005 % Solution 1 drop into affected eye in the evening Ophthalmic Once a day Aspirin Adult Low Strength 81 MG Tablet Delayed Release 1 tablet Orally Once a day Caltrate 600+D 600-800 MG-UNIT Tablet 1 tablet with a meal Orally Once a day Nitroglycerin 0.4 MG Tablet Sublingual as directed Sublingual Metoprolol Succinate ER 50 MG Tablet Extended Release 24 Hour 1 tablet Orally Once a day Meclizine HCl 12.5 MG Tablet 1 tablet as needed Orally every 12 hrs Taking B Complex - Capsule as directed Orally Taking Alendronate Sodium 70 MG Tablet Effervescent 1 tablet 30 minutes before the first food, beverage or medicine of the day dissolved in 4 ounces of water Orally Once a week Taking Rosuvastatin Calcium 10 MG Tablet 1 tablet Orally Once a day Taking Culturelle - Capsule as directed Orally one capsule daily Taking Vitamin D3 50 MCG (2000 UT) Tablet Chewable 1 tablet Orally Once a day Taking Timolol Maleate 0.5 % (DAILY) Solution 1 drop into affected eye Ophthalmic Once a day Taking Latanoprost 0.005 % Solution 1 drop into affected eye in the evening Ophthalmic Once a day Taking Aspirin Adult Low Strength 81 MG Tablet Delayed Release 1 tablet Orally Once a day Taking Caltrate 600+D 600-800 MG-UNIT Tablet 1 tablet with a meal Orally Once a day Taking Nitroglycerin 0.4 MG Tablet Sublingual as directed Sublingual Taking Metoprolol Succinate ER 50 MG Tablet Extended Release 24 Hour 1 tablet Orally Once a day Taking Meclizine HCl 12.5 MG Tablet 1 tablet as needed Orally every 12 hrs Not-TakingSuper B Complex , Notes to Pharmacist: one dailyVoltaren - - Gel as directed Externally Apply 2 grams to affected area twice a day as needed Lisinopril 10 MG Tablet 1 tablet Orally Once a day Medication List reviewed and reconciled with the patientNot-Taking Super B Complex , Notes to Pharmacist: one dailyNot-Taking Voltaren - - Gel as directed Externally Apply 2 grams to affected area twice a day as needed Not-Taking Lisinopril 10 MG Tablet 1 tablet Orally Once a day Medication List reviewed and reconciled with the patient * Allergies:?N.K.D.A.no[Allerg ies Verified] Objective: * Vitals:?Temp: 95.1 F, Oxygen sat %: 95 %, HR: 68 /min, BP: 100/70 mm Hg, Wt: 110.2 lbs, BMI: 23.84 Index, Ht: 57.01 in. * ???Past Orders: ???Lab:Hemoglobin [id number] (Order Date - 09/07/2023) (Collection Date & Time - 04/07/2024 01:18 PM) ? Value Reference Range ?Hemoglobin A1c/ Hemoglobin total 6.3 H 4.8-5.6 - % ???Lab:Albumin/Creatinine Ra yolis,[id number] (Order Date - 09/02/2023) (Collection Date & Time - 09/02/2023 11:47 AM) ? Value Reference Range ?Creatinine, Urine 86.1 No t Estab. - mg/dL ?Albumin, Urine 5.5 Not E stab. - ug/mL ?Alb/Creat Ratio 6 0-29 - mg/g creat ???Lab:LP+Non-HDL Cholestero [id number] (Order Date - 09/02/2023) (Collection Date & Time - 09/02/2023 11:47 AM) ? Value Reference Range ?Cholesterol, Total 168 1 00-199 - mg/dL ?Triglycerides 102 0-149 - mg/dL ?HDL Cholesterol 60 >39 - mg/dL ?VLDL Cholesterol Hung 18 5-40 - mg/dL ?LDL Chol Calc ([facility]) 90 0-99 - mg/dL ?Non-HDL Cholesterol 108 0-129 - mg/dL ???Lab:Comp. Metabolic Panel [id number] (Order Date - 09/02/2023) (Collection Date & Time - 09/02/2023 11:47 AM) ? Value Reference Range ?Glucose 112 H 70-99 - mg/d L ?BUN 14 8-27 - mg/dL ?Creatinine 0.89 0.57-1.00 - mg/dL ?BUN/Creatinine Ratio 16 12-28 - ?Sodium 139 134-144 - mmo l/L ?Potassium 5.4 H 3.5-5.2 - mmol/L ?Chloride 101 96-106 - mm ol/L ?Anion Gap 17.0 10.0-18.0 - mmol/L ?Carbon Dioxide, Total 21 20-29 - mmol/L ?Calcium 9.4 8.7-10.3 - m g/dL ?Protein, Total 6.9 6.0-8 .5 - g/dL ?Albumin 4.3 3.8-4.8 - g/ dL ?Globulin, Total 2.6 1.5- 4.5 - g/dL ?A/G Ratio 1.7 1.2-2.2 - ?Bilirubin, Total 0.4 0.0 -1.2 - mg/dL ?Alkaline Phosphatase 62 44-121 - IU/L ?AST (SGOT) 36 0-40 - IU /L ?ALT (SGPT) 23 0-32 - IU /L ?eGFR 67 >59 - mL/min/1. 73 * Examination: ???General Examination: ?Psychiatry?Normal.?GENERAL APPEARANCE:?Well developed, well nourished, in no acute distress.?MUSCULOSKELETAL:?Normal.?HEAD:?Normocephalic, atraumatic.?EYES:?Pupils equal, round, reactive to light and accommodation, sclera non-icteric.?EARS:?Normal.?ORAL CAVITY:?Normal.?THROAT:?Clear.?OROPHARYNX?Normal.?SINUSES?Normal.?NECK/THYROID:?Neck supple, full range of motion, no cervical lymphadenopathy.?SKIN:?Warm and dry, no suspicious lesions.?HEART:?, S1, S2 normal, regular rate and rhythm.?LUNGS:?clear to auscultation bilaterally.?BREASTS:?__.?ABDOMEN:?Soft, nontender, nondistended, bowel sounds present, normal.?EXTREMITIES:?Normal.?PERIPHERAL PULSES:?Normal.?NEUROLOGIC:?Muscle strength 4/5, bilateral.?FEMALE GENITOURINARY:?__.?MALE GENITOURINARY:?__.?PODIATRIC:?Normal.?Instruction Assistant Principal? .? Assessment: * Assessment: 1.?Atherosclerotic heart dis ease of [place] coronary artery without angina pectoris - I25.10???2.?Essential (primary) hypertension - I10???3.?Hyperlipidemia, unspecified - E78.5???4.?Impaired fasting glucose - R73.01???5.?Unspecified glaucoma - H40.9???6.?Other abnormalities of gait and mobility - R26.89???7.?Gait instability - R26.81??? Pia is a 78 year old lady [...] cataract surgery last year. She sees her bar machine operator regularly. Gait instability. -She uses a cane to walk outside. She is interested in PT.? -She will start seeing?-movement disorders-botox injections. General health concerns discussed with patient. I have rendered the services for this patient under direct supervision of Dr. Sams, who did not see the patient but was available upon request Plan: * Treatment: * Procedure Codes:? * Follow Up:?schedule iesha in j une * * Sign off status: Completed true * Provider:?Jenn Vera Date:?04/12/19 Generated for Beto mcdowell/Luciana/Abigailitting on:?05/24/2024 01:16 PM EST History and Physical Notes * HPI (History of Present Illness) Category Sub-Category Detail Notes Category Not es Internal Medicine Pia is a 79 year old lady with coronary artery disease, hypertension, hyperlipidemia and glaucoma here for follow-up. She is in her usual state of health. No systemic or constitutional symptoms. Neurocognitive functions stable. She is physically active but has a hard time walking. Her weight is stable. Denies PND, orthopnea or pedal edema. She uses a cane to walk. No history of fall. She does not need help with ADLs and IADLs. She does not appear anxious or depressed. She sleeps well, appetite is good. No GI or symptoms. She denies any other active issues or concerns. Examination Category Sub-Category Detail Notes Category Not es General Examination GENERAL APPEARANCE: Well dev eloped, well nourished, in no acute distress HEAD: Normocephalic, atrau matic EYES: Pupils equal, round, reactive to light and accommodation, sclera non-icteric EARS: Normal THROAT: Clear NECK/THYROID: Neck supple, full ra nge of motion, no cervical lymphadenopathy HEART: , S1, S2 normal, reg ular rate and rhythm LUNGS: clear to auscultatio n bilaterally ABDOMEN: Soft, nontender, non distended, bowel sounds present, normal NEUROLOGIC: Muscle strength 4/5, bilateral SKIN: Warm and dry, no rose picious lesions EXTREMITIES: Normal PERIPHERAL PULSES: Normal BREASTS: __ MUSCULOSKELETAL: Normal MALE GENITOURINARY: __ FEMALE GENITOURINARY: __ ORAL CAVITY: Normal PODIATRIC: Normal Psychiatry Normal OROPHARYNX Normal SINUSES Normal Instruction Assistant Principal Consultation Request Notes Referral Date Referring Provider Referred Provider Not es 04/12/2024 Jenn Vera , please eval uate and treat-MARGARETHI bhargav
--- OUTSIDE RECORDS SUMMARY | 2024-05-24 13:16 | XMS_ITS ---
Author Organization [facility] Address [address] [place] [address] Care Team Providers Care Rural Carrier Associate Name Role Phone DWAYNE SAMS Primary Care Provider Jenn Vera Unavailable [phone] REASON FOR VISIT Same day cancellation Encounters Encounter Location Date Provider Diagnosis [facility] [address] [place] [address] 04/05/2024 Jenn Vera Plan Of Treatment Next Appt Details Provider Name:Jenn prieto, 09/13/2024 02:00:00 PM, [address], [place], [address], Progress Notes * Santa FONTANEZOB:1945 (79 yo F)Acc No.[id number]:04/05/2024 Progress Notes Patient:?Pia FONTANEZ Provider:?Jenn Vera :1945???Age:79 Y???Sex:Female D ate:04/05/2024 Address:[address] [place] [id number] Pcp:DWAYNE SAMS Subjective: * Chief Complaints: * ???1. Same day cancellation. * Medical History:? Objective: * Vitals:? Assessment: Plan: * Treatment: * Procedure Codes:?NOSHO NO SH OW FEE * * Electronic signature of Cary Vera PA-C on 05/24/2024 at 01:16 PM EST Sign off status: Pending * Provider:Candi Vera Date:?04/05/19 Generated for Beto mcdowell/Luciana/Marilyn on:?05/24/2024 01:16 PM EST
== END 2024-05-24 11:51 | disposition home or self-care (01) ==
PROVIDERS: PCP Hospitalist; Visit Provider Psychiatry & Neurology Neurology
DX: G82.20 Paraplegia, unspecified (principal); R26.9 Unspecified abnormalities of gait and mobility
CPT/HCPCS: 99204; G2211

== ENCOUNTER → 2024-05-24 10:58 | Outpatient (BNVA) | payer MEDICARE, BC, SELFPAY | PROVIDERS: PCP Hospitalist; Visit Provider Psychiatry & Neurology Neurology | DX: G82.20 Paraplegia, unspecified (principal); R26.9 Unspecified abnormalities of gait and mobility | CPT/HCPCS: 99202 ==

== ENCOUNTER 2024-08-08 15:17 | Outpatient (AMB) | payer MEDICARE, BC, SELFPAY ==
--- NOTE | 2024-08-08 15:18 | MHC.OFFVIS ---
Vital Signs 08/08/24 15:20 Height 4 ft 9 in Weight 113 lb 6 oz BMI 24.5 BP 120/72 Blood Pressure Location Rt brachial Position Sitting Intake Visit Reasons: follow up Movement Disorder-LVM Intake Note: Patient following up on med trial baclofen. provider wanted to review MRI, EEG and Lumbar spine MRI scanned in patient's chart Allergies No Known Allergies Allergy (Verified 08/08/24 15:22) HPI Comments Details: 79y/o female comes for opinion regarding her progressive gait disorder.It started about 6 years ago -she felt her steps are shorter, she is stiff and slow. she also had multiple falls.she was seen at [facility] , had a trial of carbidopa/ levodopa for 3 months and had large volume LP with no response. she has some low back pain - sees [facility] treatment center. she denies any radiating pain. she has tingling in her feet when she is sleeping. No neck issues She denies any tremors. She denies any family h/o gait problems. she denies double vision , denies vertigo. SHe has occasional dizziness.she denies any speech or swallowing issues. Bowel movements are stable she has urinary urgency . she was seen by and Dr. Santoro at [facility]. 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 she used to do ballet and dancing as a child. 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 [facility] Medical History Gait abnormality Paraparesis Diarrhea Gait instability Glaucoma CAD (coronary artery disease) HTN (hypertension) Hyperlipidemia Surgical History History of heart artery stent H/O angioplasty Social History Alcohol intake: current Comment: occasional wine Patient Tobacco Use Status: Never used Tobacco Physical Exam Vital Signs: Last Vital Signs BP 120/72 08/08/24 15:20 BMI result Body Mass Index 24.5 Const General: cooperative, healthy appearing, comfortable and no acute distress Nutritional Appearance: average body habitus Orientation/consciousness: patient oriented x3 Eyes Pupils: Equal, round and reactive pupils present Neuro Other: Gait- small steps guarded , narrow base , slow , drags her feet , like she has partial foot drop Dorsiflexion 4/5 plantar flexion 5/5 Mild increased tone rachid LE L>R Mild droopy eyelids General: patient oriented x3 and moves all extremities Cranial nerves: Yes Facial sensation intact/muscles of mastication intact, Yes Equal, round and reactive pupils present, Yes Bilaterally intact EOM present, Yes Nystagmus not present, Yes Normal facial strength present, Yes Midline tongue present, Yes Symmetric palate elevation present and Yes Ability to bilaterally elevate shoulders present Cognition (Neuro): normal cognition Motor exam (neuro): 5/5 motor strength present throughout Deep tendon reflexes (DTR's): Right triceps reflex intensity grade: 2+, Left triceps reflex intensity grade: 2+, Rt Biceps (C5, C6): 2+, Left biceps reflex intensity grade: 2+, Right brachioradialis reflex intensity grade: 2+, Left brachioradialis reflex intensity grade: 2+, Right patellar reflex intensity grade: 3+, Left patellar reflex intensity grade: 3+ and Right ankle reflex intensity grade: 3+ Coordination: [id number]-dg-[id number] test normal Assessment & Plan Assessment & Plan (1) Paraparesis: Comment: with mild spasticty ? post polio ? hereditary spastic parapareis Code(s): G82.20 - Paraplegia, unspecified Category: Medical (2) Gait abnormality: Code(s): R26.9 - Unspecified abnormalities of gait and mobility Category: Medical Plan Review images and EMG from [facility] - lumbar spondylosis and cervical spondylosis with some ventral cord impingement on MRI fron 2021 I will schedule a repeat MRI LS spine C spine and refer to Neurospine for opinion she did not tolerate bcalofen Refer to for possible Botox for her LE Orders: Orders MR cervical spine wo con Today G82.20 - Paraplegia, unspecified, M47.812 - Spondylosis without myelopathy or radiculopathy, cervical region, R26.9 - Unspecified abnormalities of gait and mobility MR lumbar spine wo con Today G82.20 - Paraplegia, unspecified, M47.16 - Other spondylosis with myelopathy, lumbar region, R26.9 - Unspecified abnormalities of gait and mobility Referrals Physiatry Referral G82.20 - Paraplegia, unspecified, R26.9 - Unspecified abnormalities of gait and mobility Neuro Spine Referral G82.20 - Paraplegia, unspecified, M47.16 - Other spondylosis with myelopathy, lumbar region, M47.812 - Spondylosis without myelopathy or radiculopathy, cervical region Coding Level of Care Code Est Pt Level 4 (78753) Complex EM visit Add On G2211 Diagnoses Paraparesis G82.20 Gait abnormality R26.9
[2024-08-08 15:20] VITALS: BP 120/72; BMI 24.5
--- OUTSIDE RECORDS SUMMARY | 2024-08-08 15:22 | XMS_ITS | Patient Health Record ---
Author Organization [facility] Address [address] [place] [address] Care Team Providers Care Archer[employer] Hay Sorter Name Role Phone FLAQUITA RICE Primary Care Provider Jenn Vera Unavailable [phone] Allergies No Known Allergies Results Component Value Reference Range Notes Hemoglobin [id number] Reviewed date:04/08/2024 09:19:20 AM Interpretation: Performing Lab:[facility], [address] [facility], Phone - [phone], Director - Timmy Notes/Report: Hemoglobin A1c 6.3 4.8-5.6 % . Prediabetes: 5.7 - 6.4 Diabetes: >6.4 Glycemic control for adults with diabetes: <7.0 Hgb A1c with eAG Estimation- [id number] Reviewed date:09/03/2023 04:21:59 PM Interpretation: Performing Lab:[facility], [address] [facility], Phone - [phone], Director - Timmy Notes/Report: Hemoglobin A1c 6.4 4.8-5.6 % . Prediabetes: 5.7 - 6.4 Diabetes: >6.4 Glycemic control for adults with diabetes: <7.0 Estim. Avg Glu (eAG) 137 Comp. Metabolic Panel (14)-3 [id number] Reviewed date:09/03/2023 04:21:55 PM Interpretation: Performing Lab:[facility], [address] [facility], [place], Phone - [phone], Director - Timmy Notes/Report: Glucose 112 70-99 mg/dL BUN 14 [...] IU/L ALT (SGPT) 23 0-32 IU/L LP+Non-HDL Cholesterol-05729 5 Reviewed date:09/03/2023 04:22:03 PM Interpretation: Performing Lab:[facility], [address] [facility], Phone - [phone], Director - MDJodry Notes/Report: Cholesterol, Total 168 100-199 mg/dL Triglycerides 102 0-149 mg/dL HDL Cholesterol 60 >39 mg/dL VLDL Cholesterol Hung 18 5-40 mg/dL LDL Chol Calc (NIH) 90 0-99 mg/dL Non-HDL Cholesterol 108 0-129 mg/dL Albumin/Creatinine Ratio,Uri ne-[id number] Reviewed date:09/03/2023 04:22:01 PM Interpretation: Performing Lab:[facility], [address] [facility], [place], Phone - [phone], Director - MDJodry Notes/Report: Creatinine, Urine 86.1 Not Estab. mg/dL Albumin, Urine 5.5 Not Estab. ug/mL Alb/Creat Ratio 6 0-29 mg/g creat Normal: 0 - 29 Moderately increased: 30 - 300 Severely increased: >300 Reason For Referral Reason Evaluation and manag ement Diagnosis 1 Other abnormalities of gait and mobility (R26.89) Referral Organization [facility] Referring Provider First Name RICE Referring Provider Last Name [facility] Referring Provider Speciality Internal M edicine Referred Provider Specialty Neurology General Notes Referral faxed to [facility] (Tanya Naidu MD) - Dept will call patient for scheduling., Truman Olson 09/08/2023 11:53:25 AM > Referral Priority Routine Reason please evaluate and treat-[facility] bhargav Diagnosis 1 Gait instability (R2 6.81) Referral Organization [facility] Referring Provider First Name Jenn Referring Provider Last Name Jody Referred Provider Specialty Physical The rapist General Notes referral sent to [facility] physical therapy. Please contact patient for scheduling, [...] Status W/U Status Risk Notes Problem Glaucoma (65112213) Unspecified glaucoma (H40.9) Active confirmed Problem Hearing loss (27871720) Unspecified hearing loss, unspecified ear (H91.90) Active confirmed Problem Atherosclerotic heart disease of [place] coronary artery without angina pectoris (329653224964841) Atherosclerotic heart disease of [place] coronary artery without angina pectoris (I25.10) Active confirmed Problem Non-neoplastic nevus (101201715) Nevus, non-neoplastic (I78.1) Active confirmed Problem Vascular disorder of intestine (385965560) Vascular disorder of intestine, unspecified (K55.9) Active confirmed Problem Celiac disease (280270179) Celiac disease (K90.0) Active confirmed Problem Muscle weakness (17947947) Muscle weakness (generalized) (M62.81) Active confirmed Problem Age-related osteoporosis (267222742) Age-related osteoporosis without current pathological fracture (M81.0) Active confirmed Problem Abnormal gait (51169405) Other abnormalities of gait and mobility (R26.89) Active confirmed Problem Hyperlipidemia (48039690) Hyperlipidemia, unspecified (E78.5) Active confirmed Problem Essential hypertension (72687652) Essential (primary) hypertension (I10) Active confirmed Problem Gait instability (R26.81) Active confirmed Vital Signs Heart Rate 68 /min 04/12/2024 Temperature 95.1 degrees Fahrenheit 04/12/2024 Oximetry 95 % 04/12/2024 Blood pressure diastolic 70 mm Hg 04/12/2024 Height 57.01 in 04/12/2024 Blood pressure systolic 100 mm Hg 04/12/2024 Weight 110.2 lbs 04/12/2024 BMI 23.84 kg/m2 04/12/2024 Encounters Encounter Location Date Provider Diagnosis [address] [place] [address] [facility] [address] [place] [address] [facility]/07/2023 DWAYNE SAMS Encounter for genera l adult medical examination without abnormal findings Z00.00 ; Atherosclerotic heart disease of [place] coronary artery without angina pectoris I25.10 ; Essential (primary) hypertension I10 ; Hyperlipidemia, unspecified E78.5 ; Impaired fasting glucose R73.01 ; Unspecified glaucoma H40.9 ; Other abnormalities of gait and mobility R26.89 and Muscle weakness (generalized) M62.[address] [place] [address] 04/12/2024 Jenn Vera Atherosclerotic hear t disease of [place] coronary artery without angina pectoris I25.10 ; Essential (primary) hypertension I10 ; Hyperlipidemia, unspecified E78.5 ; Impaired fasting glucose R73.01 ; Unspecified glaucoma H40.9 ; Other abnormalities of gait and mobility R26.89 and Gait instability R26.[address] [place] [address] 04/05/2024 DWAYNE SAMS [address] [place] [address] 04/12/2024 DWAYNE SAMS Assessments Encounter Date Diagnosis (ICD Code) Assessment Notes Treatment Notes Treatment Clinical Notes Section Notes 09/07/2023 Atherosclerotic heart disease of [place] coronary artery without angina pectoris (ICD-10 - [...] cataract surgery last year. She sees her metal mine inspector regularly. Gait instability. She uses a cane [...] her HCP is her daughter Debby Fontanez. [phone] General health concerns discussed with patient. Scribe services used to formulate this note under HIPAA compliance and under [place] law mandated for scribe services. Patient aware [...] cataract surgery last year. She sees her metal mine inspector regularly. Gait instability. She uses a cane [...] her HCP is her daughter Debby Fontanez. [phone] General health concerns discussed with patient. Scribe services used to formulate this note under HIPAA compliance and under [place] law mandated for scribe services. Patient aware of service. Verbal consent and written consent taken from the patient. Patient understands and verbalizes understanding of the scribes services and all questions answered regarding scribes services. Patient agrees to use of scribes services. 04/12/2024 Atherosclerotic heart disease of [place] coronary artery without angina pectoris (ICD-10 - [...] cataract surgery last year. She sees her metal mine inspector regularly. Gait instability. -She uses a cane to walk outside. She is interested in PT. -She will start seeing -movemen t disorders-botox injections. General health concerns discussed [...] cataract surgery last year. She sees her metal mine inspector regularly. Gait instability. -She uses a cane [...] cataract surgery last year. She sees her metal mine inspector regularly. Gait instability. She uses a cane [...] her HCP is her daughter Debby Fontanez. [phone] General health concerns discussed with patient. Scribe services used to formulate this note under HIPAA compliance and under [place] law mandated for scribe services. Patient aware [...] cataract surgery last year. She sees her metal mine inspector regularly. Gait instability. She uses a cane [...] her HCP is her daughter Debby Fontanez. [phone] General health concerns discussed with patient. Scribe services used to formulate this note under HIPAA compliance and under [place] law mandated for scribe services. Patient aware [...] cataract surgery last year. She sees her metal mine inspector regularly. Gait instability. -She uses a cane [...] cataract surgery last year. She sees her metal mine inspector regularly. Gait instability. She uses a cane [...] her HCP is her daughter Debby Fontanez. [phone] General health concerns discussed with patient. Scribe services used to formulate this note under HIPAA compliance and under [place] law mandated for scribe services. Patient aware [...] cataract surgery last year. She sees her metal mine inspector regularly. Gait instability. -She uses a cane to walk outside. She is interested in PT. -She will start seeing -janes t disorders-botox injections. General health concerns discussed with patient. I have rendered the services for this patient under direct supervision of Dr. Sams, who did not see the patient but was available upon request 09/07/2023 Unspecified glaucoma (ICD-10 - H40.9) Pia [...] cataract surgery last year. She sees her metal mine inspector regularly. Gait instability. She uses a cane [...] her HCP is her daughter Debby Fontanez. [phone] General health concerns discussed with patient. Scribe services used to formulate this note under HIPAA compliance and under [place] law mandated for scribe services. Patient aware [...] cataract surgery last year. She sees her metal mine inspector regularly. Gait instability. -She uses a cane to walk outside. She is interested in PT. -She will start seeing Dr.Athreya-movemen posadas disorders-botox injections. General health concerns discussed with [...] cataract surgery last year. She sees her metal mine inspector regularly. Gait instability. -She uses a cane [...] cataract surgery last year. She sees her metal mine inspector regularly. Gait instability. She uses a cane [...] her HCP is her daughter Debby Fontanez. [phone] General health concerns discussed with patient. Scribe services used to formulate this note under HIPAA compliance and under [place] law mandated for scribe services. Patient aware [...] cataract surgery last year. She sees her metal mine inspector regularly. Gait instability. She uses a cane [...] her HCP is her daughter Debby Fontanez. [phone] General health concerns discussed with patient. Scribe services used to formulate this note under HIPAA compliance and under [place] law mandated for scribe services. Patient aware of service. Verbal consent and written consent taken from the patient. Patient understands and verbalizes understanding of the scribes services and all questions answered regarding scribes services. Patient agrees to use of scribes services. 04/12/2024 Gait instability (ICD-10 - R26.81) Pia [...] cataract surgery last year. She sees her metal mine inspector regularly. Gait instability. -She uses a cane [...] URINE 05/29/2023 Next Appt Details Provider Name:Jenn prieto, 09/13/2024 02:00:00 PM, [address] [place] [address], [phone], Insurance Providers Payer Name Payer Address Payer Phone Subscriber Number Group Number Insured Name Patient Relationship to Insured Coverage Start Date Coverage End Date Medicare [address] [place] [address] [id number] Pia Fontanez Self - patient is the insured [facility] [address] [place] [address] [id number] Pia Fontanez Self - patient is the insured 8 Medical (General) History Medical History History ICD Code Atherosclerotic heart diseas e of [place] coronary artery without angina pectoris and see Dr Quiñones Other fatigue Hyperlipidemia, unspecified Essential (primary) hypertension Irritable bowel syndrome without diarrhe a Low back pain Age-related osteoporosis without current pathological fracture CAD. Proximal left circumfle x stent in 2000. Proximal LAD stent 2000. MIKA proximal RCA 2019 at [facility]. 70% in-stent restenosis in LAD. PD See Dr Larry Santoro at [facility] Surgical History Surgery Date(Month/Year) cholecystectomy ear surgery balloon angioplasty x2
--- OUTSIDE RECORDS SUMMARY | 2024-08-08 15:22 | XMS_ITS | Clinical Summary ---
Author Organization [facility] Address [address] [place] [address] Care Team Providers Care Jewelry Bench Worker Name Role Phone Dwayne Sams MD Primary Care Provider [phone] Medications metoprolol succinate (Toprol XL) 50 mg 24 hr tablet Take 1 tablet (50 mg total) by mouth 1 (one) time each day. Do not crush or chew. 90 each 2 02/11/2024 Active rosuvastatin (CRESTOR) 10 mg tablet TAKE 1 TABLET BY MOUTH DAILY 90 tablet 1 08/08/2024 Active Encounters Date Type Department Care Team Description 07/27/2024 Telephone [facility] [address] [place] [address] Jimmy Quiñones MD Scheduling Recall from Last 3 Months Social History Tobacco Use Types Packs/Day Years Used Date Smoking Tobacco: Former Smokeless Tobacco: Never Alcohol Use Standard Drinks/Week Comments Not Currently 1 (1 standard drink = 0.6 oz pur e alcohol) Comments Unknown Sex and Gender Information Value Date Recorded Sex Assigned at Not on file Legal Sex Female 4:24 AM EST Gender Identity Not on file Sexual Orientation Not on file Obstetrics History Last Filed Vital Signs Vital Sign Reading Time Taken Comments Blood Pressure 108/74 11/03/2023 1:51 PM EDT Pulse 70 01/29/2023 1:02 PM EDT Temperature - - Respiratory Rate - - Oxygen Saturation - - Inhaled Oxygen Concentration - - Weight 49.4 kg (109 lb) 11/03/2023 1:51 PM EDT Height 144.8 cm (4' 9 ) 11/03/2023 1:51 PM EDT Body Mass Index 23.59 11/03/2023 1:51 PM EDT Plan of Treatment Health Maintenance Due Date Last Done Comments DTaP,Tdap,and Td Vaccines (1 - Tdap) 1966 Pneumococcal Vaccine: 50+ Years (1 of 1 - PCV) 1997 Zoster Vaccines (1 of 2) 1997 RSV Immunization Adult Patients (1 - 1-dose 75+ series) 2022 Cholesterol Screening (Lipid Panel) 03/09/2022 Depression Screening 03/09/2022 Falls Risk Assessment 03/09/2022 Hepatitis C Screening 03/09/2022 Hypertension/CHF/CAD Annual BMP Blood Test 03/09/2022 Social Influencers of Health Screening 03/09/2022 Medicare Annual Wellness Visit 09/05/2023 09/04/2022 COVID-19 Vaccine ( - 2023-2 5 season) 2023 Influenza Vaccine (Season Ended) 2024 04/10/2021, 01/01/2017 Osteoporosis Screening (Bone Density Screening) 10/03/2032 10/03/2022, 02/28/2021 HIB Vaccines Aged Out No longer eligi ble based on patient's age to complete this topic HPV Vaccines Aged Out No longer eligi ble based on patient's age to complete this topic Hepatitis A Vaccines Aged Out No long er eligible based on patient's age to complete this topic Hepatitis B Vaccines Aged Out No long er eligible based on patient's age to complete this topic IPV Vaccines Aged Out No longer eligi ble based on patient's age to complete this topic MMR Vaccines Aged Out No longer eligi ble based on patient's age to complete this topic Meningococcal ACWY Vaccine Aged Out N o longer eligible based on patient's age to complete this topic Meningococcal B Vaccine Aged Out No l onger eligible based on patient's age to complete this topic RSV Immunization Patients Under 20 months Aged Out No longer eligible b ased on patient's age to complete this topic Varicella Vaccines Aged Out No longer eligible based on patient's age to complete this topic Procedures Procedure Name Priority Date/Time Associated Diagnosis Comments [facility] DEXA AXIAL SKELETON Routine 10/03/2022 7:39 AM EDT Age-related osteoporosis without current pathological fracture from Last 3 Months or Most Recently Relevant to Health Maintenance Results * [facility] DEXA AXIAL SKELETON (10/03/2022 7:39 AM EDT) Anatomical Region Laterality Modality Mammography 10/02/2022 1:34 PM EDT Narrative 10/03/2022 7:39 AM EDT [facility] Diagnostic Imaging Department [address] [place] [id number] Patient: ??FLORI FONTANEZ ?/Age/Sex: 1945 77 - F Unit#: ??[id number] ? Location/Status: ??SPDIMAM/REG CLI ? [facility]ing [facility] Ordering Physician: ??DWAYNE SAMS MD [facility] Dexa Axial Skeleton - 10/02/22 - [id number] Report Status:Signed HISTORY: ??The patient is a 77-year-old postmenopausal female with clinical concern for metabolic bone disease. FINDINGS: ??Dual energy x-ray absorptiometry of the lumbar spine and femurs is performed. The mean bone mineral density at L2-3 is 1.040 gm/cm2 which is 87% of that of young normals and 111% of that of age matched controls. This yields a T- score of -1.3 and a Z-score of 0.9 which is diagnostic of osteopenia. The mean bone mineral density of the femurs bilaterally is 0.831 gm/cm2 which is 83% of that of young normals and 111% of that of age matched controls. ??This yields a T-score of -1.4 and a Z-score of 0.7 which is diagnostic of osteopenia. However, the T-score of the right femoral neck is -2.5 and that of the left femoral neck is -2.8 which is diagnostic of osteoporosis. IMPRESSION: 1. Osteoporosis. ??There has been a decrease of 4.2% in bone mineral density in the lumbar spine since the prior examination of 02/28/2021. ??There has been an increase of 2.2% in bone mineral density in the right femur and a decrease of 2.7% in bone mineral density in the left femur. 2. FRAX analysis yields a 10-year probability of major osteoporotic fracture of 25.8% and a 10-year probability of hip fracture of 8.1%. Code 32488 Dictating Physician: ??BRANT VILLALBA MD Electronically Signed by: ??BRANT VILLALBA MD Dic Date/Time: ??10/03/22737 Sign date/Time: ??10/03/22738 Procedure Note Brant Villalba MD - 05/05/2023 [facility] Diagnostic Imaging Department [address] [place] [address] Patient: FLORI FONTANEZ Stacey PetersonB./Age/Sex: 1945 - 77 - F Unit#: [id number] [facility] Ordering Physician: DWAYNE SAMS MD [facility] Dexa Axial Skeleton - 10/02/22 - [id number] Report Status:Signed HISTORY: The patient is a 77-year-old postmenopausal female withclinical concern for metabolic bone disease. FINDINGS: Dual energy x-ray absorptiometry of the lumbar spine and femursis performed. The mean bone mineral density at L2-3 is 1.040 gm/cm2 which is87% of that of young normals and 111% of that of age matched controls. Thisyields a T- score of -1.3 and a Z-score of 0.9 which is diagnostic of osteopenia. The mean bone mineral density of the femurs bilaterally is 0.831 gm/dg9wdijj is 83% of that of young normals and 111% of that of age matched controls.This yields a T-score of -1.4 and a Z-score of 0.7 which is diagnostic ofosteopenia. However, the T-score of the right femoral neck is -2.5 and that of theleft femoral neck is -2.8 which is diagnostic of osteoporosis. IMPRESSION: 1. Osteoporosis. There has been a decrease of 4.2% in bone mineraldensity in the lumbar spine since the prior examination of 02/28/2021. There has beenan increase of 2.2% in bone mineral density in the right femur and a decreaseof 2.7% in bone mineral density in the left femur. 2. FRAX analysis yields a 10-year probability of major osteoporoticfracture of 25.8% and a 10-year probability of hip fracture of 8.1%. Code 51304 Dictating Physician: BRANT VILLALBA MD Electronically Signed by: BRANT VILLALBA MD Dic Date/Time: 10/03/22737 Sign date/Time: 10/03/22738 Dwayne Sams MD IMG BI PROCEDURES Final Result from Last 3 Months or Most Recently Relevant to Health Maintenance Care Teams Jewelry Bench Worker Relationship Specialty Start Date End Date Dwayne Sams MD [address] [place] [address] [facility] - General 05/10/12
--- OUTSIDE RECORDS SUMMARY | 2024-08-08 15:22 | XMS_ITS ---
Author Organization [facility] Address [address] [facility] [address] [place] [address] Care Team Providers Care Hydrocrane Operator Name Role Phone DWAYNE SAMS Primary Care Provider Jenn Vera Unavailable [phone] REASON FOR VISIT Same day cancellation Encounters Encounter Location Date Provider Diagnosis [facility] [address] [facility] [address] [place] [address] 04/05/2024 Jenn Vera Plan Of Treatment Next Appt Details Provider Name:Jenn prieto, 09/13/2024 02:00:00 PM, [address] [facility] [address], [place], [address], Progress Notes * Santa FONTANEZOB:1945 (79 yo F)Acc No.[id number]:04/05/2024 Progress Notes Patient:?Pia FONTANEZ Appointment Provider:Candi Vera :1945???Age:79 Y???Sex:Female D ate:04/05/2024 Address:[address] [place], [place] [id number] Pcp:DWAYNE SAMS Subjective: * Chief Complaints: * ???1. Same day cancellation. * Medical History:? Objective: * Vitals:? Assessment: Plan: * Treatment: * Procedure Codes:?NOSHO NO SH OW FEE * Images: * Electronic signature of Cary Vera PA-C on 08/08/2024 at 03:22 PM EDT Sign off status: Pending * Appointment Provider:?Jenn Buchanan te:?04/05/2024 Generated for Beto mcdowell/Luciana/Marilyn on:?08/08/2024 03:22 PM EDT
--- OUTSIDE RECORDS SUMMARY | 2024-08-08 15:22 | XMS_ITS ---
Author Organization [facility] Address [address] [place] [address] Care Team Providers Care Strategic Advisor Name Role Phone DWAYNE SAMS Primary Care Provider [phone] REASON FOR VISIT Physical Therapy Encounters Encounter Location Date Provider Diagnosis [facility] [address] [facility] [address] [place] [address] 04/12/2024 DWAYNE SAMS Plan Of Treatment Next Appt Details Provider Name:Jenn prieto, 09/13/2024 02:00:00 PM, [address] [place] [address] [address], [place], [address], Progress Notes * Santa FONTANEZOB:1945 (79 yo F)Acc No.[id number]:04/12/2024 Patient:?Pia FONTANEZ :1945???Age:79 Y???Sex:Female Address:[address] [place] [address] * true * Date:? Generated for Printi ng/Faxing/eTransmitting on:?08/08/2024 03:22 PM EDT
--- OUTSIDE RECORDS SUMMARY | 2024-08-08 15:22 | XMS_ITS ---
Author Organization [employer] [facility] Address [address] [facility] [address] [place] [address] Care Team Providers Care Radio Time Sales Supervisor Name Role Phone LEATHADee Dee RICE Primary Care Provider [phone] Jenn Vera Unavailable [phone] Allergies No Known Allergies Reason For Referral Reason please evaluate and treat-[facility] Diagnosis 1 Gait instability (R2 6.81) Referral Organization [employer] Aleyda john Referring Provider First Name Jenn Referring Provider Last Name Jody Referred Provider Specialty Physical The rapist General Notes referral sent to [facility] physical therapy. 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 She sees her lusterer regularly. Gait instability. -She uses a cane [...] cataract surgery last year. She sees her lusterer regularly. Gait instability. -She uses a cane [...] cataract surgery last year. She sees her lusterer regularly. Gait instability. -She uses a cane to walk outside. She is interested in PT. -She will start seeing t junior-botox injections. General health concerns discussed with patient. [...] cataract surgery last year. She sees her lusterer regularly. Gait instability. -She uses a cane [...] cataract surgery last year. She sees her lusterer regularly. Gait instability. -She uses a cane [...] cataract surgery last year. She sees her lusterer regularly. Gait instability. -She uses a cane [...] cataract surgery last year. She sees her lusterer regularly. Gait instability. -She uses a cane [...] schedule iesha bhavesh vernon, Reason: Provider Name:Jenn prieto, 09/13/2024 02:00:00 PM, [address] [place] [address], [address], Progress Notes * Santa FONTANEZOB:1945 (79 yo F)Acc No.[id number]:04/12/2024 Progress Notes Patient:?Pia FONTANEZ Provider:?Jenn Vera :1945???Age:79 Y???Sex:Female D ate:04/12/2024 Address:[address] [place], [place] [id number] Pcp:DWAYNE SAMS Subjective: * Chief Complaints: * [...] Ht: 57.01 in. * ???Past Orders: ???Lab:Hemoglobin [id number] (Order Date - 09/07/2023) (Collection Date & Time - 04/07/2024 01:18 PM) ? Value Reference Range ?Hemoglobin A1c/ Hemoglobin total 6.3 H 4.8-5.6 - % ???Lab:Albumin/Creatinine Ra yolis,[id number] (Order Date - 09/02/2023) (Collection Date & Time - 09/02/2023 11:47 AM) ? Value Reference Range ?Creatinine, Urine 86.1 No t Estab. - mg/dL ?Albumin, Urine 5.5 Not E stab. - ug/mL ?Alb/Creat Ratio 6 0-29 - mg/g creat ???Lab:LP+Non-HDL Cholestero [id number] (Order Date - 09/02/2023) (Collection Date & Time - 09/02/2023 11:47 AM) ? Value Reference Range ?Cholesterol, Total 168 1 00-199 - mg/dL ?Triglycerides 102 0-149 - mg/dL ?HDL Cholesterol 60 >39 - mg/dL ?VLDL Cholesterol Hung 18 5-40 - mg/dL ?LDL Chol Calc (NIH) 90 0-99 - mg/dL ?Non-HDL Cholesterol 108 0-129 - mg/dL ???Lab:Comp. Metabolic Panel [id number] (Order Date - 09/02/2023) (Collection Date & [...] present, normal.?EXTREMITIES:?Normal.?PERIPHERAL PULSES:?Normal.?NEUROLOGIC:?Muscle strength 4/5, bilateral.?FEMALE GENITOURINARY:?__.?MALE GENITOURINARY:?__.?PODIATRIC:?Normal.?Cosmetologist? .? Assessment: * Assessment: 1.?Atherosclerotic heart dis ease of rampart coronary artery without angina pectoris - I25.10???2.?Essential [...] cataract surgery last year. She sees her lusterer regularly. Gait instability. -She uses a cane [...] status: Completed true * Provider:?Jenn Vera Date:?04/12/19 25 Generated for Beto mcdowell/Luciana/Marilyn on:?08/08/2024 03:22 PM EDT History and Physical Notes * HPI (History [...] Normal Psychiatry Normal OROPHARYNX Normal SINUSES Normal Cosmetologist Consultation Request Notes Referral Date Referring Provider Referred Provider Not gustavo 04/12/2024 Jenn Vera , please eval uate and treat-MARGARETHI bhargav
== END 2024-08-08 15:43 | disposition home or self-care (01) ==
LOC: HO.HSMS 15:18
PROVIDERS: PCP Hospitalist; Visit Provider Psychiatry & Neurology Neurology
DX: G82.20 Paraplegia, unspecified (principal); R26.9 Unspecified abnormalities of gait and mobility
CPT/HCPCS: 99214; G2211

== ENCOUNTER → 2024-08-08 15:17 | Outpatient (BNVA) | payer MEDICARE, BC, SELFPAY | PROVIDERS: PCP Hospitalist; Visit Provider Psychiatry & Neurology Neurology | DX: G82.20 Paraplegia, unspecified (principal); M47.812 Spondylosis without myelopathy or radiculopathy, cervical region; R26.9 Unspecified abnormalities of gait and mobility | CPT/HCPCS: 99212 ==

== ENCOUNTER → 2024-08-20 14:12 | Outpatient (BNV) | payer MEDICARE, BC, SELFPAY | PROVIDERS: PCP Hospitalist; Visit Provider Radiology Diagnostic Radiology | DX: M51.369 Other intervertebral disc degeneration, lumbar region without mention of lumbar back pain or lower extremity pain (principal); M50.222 Other cervical disc displacement at C5-C6 level | CPT/HCPCS: 72148 ==

== ENCOUNTER 2024-08-20 14:17 | Outpatient (REF) | payer MEDICARE, BC, SELFPAY ==
--- NOTE | ~2024-08-20 | MR_ITS ---
CLINICAL HISTORY: R26.9 - Unspecified abnormalities of gait and mobility MR cervical spine without gadolinium Comparison: None Findings: Cervical spine straightening. Normal alignment without acute fracture. No marrow infiltration. Unremarkable signal intensity of the visualized cord. Partially empty sella. Otherwise unremarkable visualized brain. Unremarkable visualized soft tissues. C3/C4: Small central disc osteophyte without significant central canal or neural foraminal stenosis. C4/C5: Mild right neural foraminal stenosis. Up to 3 mm (AP dimension) central disc osteophyte and short pedicles cause mild central canal compromise. Midsagittal dimension of the thecal sac measures 9 mm and there is mild flattening of the cord. C5/C6: Central disc herniation measuring up to 5 mm in AP dimension superimposed on short pedicles causes moderate central canal compromise. Midsagittal dimension of the thecal sac measures 8 mm and there is effacement of the CSF and flattening of the cord. C6/C7: Small central disc osteophyte and short pedicles cause mild central canal compromise. Otherwise no evidence of significant central canal or neural foraminal stenosis at cervical levels. IMPRESSION: C5/C6: Central disc herniation measuring up to 5 mm in AP dimension superimposed on short pedicles causes moderate central canal compromise. Midsagittal dimension of the thecal sac measures 8 mm and there is effacement of the CSF and flattening of the cord. Mild central canal compromise at C4/C5 and C6/C7. This document has been electronically signed by: Ynes Persaud MD on 08/23/2024 13:51:06
--- NOTE | ~2024-08-20 | MR_ITS ---
CLINICAL HISTORY: M47.16 - Other spondylosis with myelopathy, lumbar region MR of the lumbar spine without contrast Comparison: None Findings: Normal alignment. Multilevel Modic type 1 change; at T12/L1 posteriorly, the inferior endplate L2, surrounding Modic type 3 change /Schmorl's node in the anterior superior endplate of L3, surrounding Modic type 2 change L3/L4, of the anterior superior endplate of L5 to the left of midline and a trace amount L5/S1. No cord expansion or abnormal signal intensity. The conus medullaris terminates at L1, which is normal. The cauda equina is unremarkable. No asymmetric muscular atrophy to indicate prior poliomyelitis. L1/L2: No disc herniation. Mild facet joint and ligamentum flavum hypertrophy. No central canal stenosis. No lateral recess stenosis. No foraminal stenosis. L2/L3: 5 mm left paracentral disc protrusion in the left central canal/subarticular zone with concurrent 3 mm broad-based disc bulge. Moderate facet joint and ligamentum flavum hypertrophy. Mild central canal stenosis. Moderate bilateral lateral recess stenosis. No right and mild left foraminal stenosis. L3/L4: 4 mm broad-based disc bulge. Moderate facet joint and ligamentum flavum hypertrophy. Mild central canal stenosis. Moderate right and severe left lateral recess stenosis. Mild right and moderate left foraminal stenosis. L4/L5: 3 mm broad-based disc bulge. Moderate facet joint and ligamentum flavum hypertrophy. Mild central canal stenosis. Moderate to severe bilateral lateral recess stenosis, greater on the left. No right and mild left foraminal stenosis. L5/S1: 5 mm broad-based disc bulge. Moderate facet joint and ligamentum flavum hypertrophy. There is epidural lipomatosis which contributes to stenosis. Moderate central canal stenosis. Mild bilateral lateral recess stenosis. No foraminal stenosis. Impression: Multilevel degenerative change, detailed above. This document has been electronically signed by: Tawana Feldman MD on 08/23/2024 16:42:44
== END 2024-08-20 14:18 | disposition home or self-care (01) ==
LOC: HO.MRI 14:17
PROVIDERS: PCP Hospitalist; Visit Provider Psychiatry & Neurology Neurology
DX: R26.9 Unspecified abnormalities of gait and mobility (principal); G82.20 Paraplegia, unspecified; M47.812 Spondylosis without myelopathy or radiculopathy, cervical region; M47.16 Other spondylosis with myelopathy, lumbar region
CPT/HCPCS: 72141; 72148

== ENCOUNTER 2024-08-26 12:54 | Outpatient (AMB) | payer MEDICARE, BC, SELFPAY ==
--- NOTE | 2024-08-26 13:00 | HO.SPINEOV ---
Vital Signs 08/26/24 13:04 Height 4 ft 9 in Weight 113 lb BMI 24.5 Intake Visit Reasons: Neck & LBP Intake Note: Ms. Fontanez is here today c/o neck and low back pain causing Difficulty with walking. 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 She is a 79-year-old female presents to the office today for evaluation of a gait disorder. It started probably 6 years ago or more. She describes it as feeling slow when she starts to walk. Her feet will shuffle and often times she will feel like she is going to fall. She has been worked up for this by what sounds like numerous neurology appointments. She was trialed on what sounds like Sinemet and a large volume tap for NPH and neither of these yielded any significant benefit, however she did report that after the high-volume spinal tap, she never had any immediate follow-up. She does not report any significant neck pain or numbness going down her arms. She does have some numbness on the bottom of her feet. She has some urinary urgency but no incontinence. No pain shooting down the arm. She had a follow up MRI done here at [facility] on a previous cervical MRI showing possible spinal cord compression and it showed some worsening of the C5-6 disc bulge. PMH: History of coronary disease, she has had stents done in 2003 in the last 1 in 2019 I believe. She is followed by Dr. Quiñones. History of hypertension, high cholesterol, no history of strokes, liver disease, renal disease, coagulopathies, cancer or blood clots. No history of diabetes. Social hx: She does not smoke, drink or use any recreational drugs Medications: Latanoprost, metoprolol, rosuvastatin Allergies: None Physical exam: Awake alert oriented no acute distress, she is able to stand up out of a chair albeit slowly. She can ambulate down the hallway independently, she has a very narrow based gait and she has almost no elevation or heel strike of her feet with walking. Difficulty with tandem gait walking. Strength in the upper extremities is full, lower extremity strength she does have some mild iliopsoas weakness but the distal lower extremity strength is full. Reflexes 3+ in the upper extremities, 3+ in the patella, 2 beats of clonus in the right ankle 1 beat in the left. Toes downgoing bilaterally. Imaging review: Cervical MRI done at [facility] shows slight worsening of degenerative disc disease at C5-6 causing indentation of the spinal cord, no cord signal change seen Impression: 79-year-old female presents with gait disorder which she describes as feeling slow with walking, unsteady and a general feeling of fatigue in her legs. She has no upper extremity symptoms to report. Her exam does show some myelopathic features with clonus in her ankles, and some mild hip flexor weakness. She does have spinal cord compression at C5-6 best seen on the sagittal view, and there is no cord signal change seen at this level. Although her symptoms are somewhat unusual, Dr. Keys and I watched her walk together and reviewed her MRI. Although she does not have classic symptoms of myelopathy, given the worsening of the symptoms, unless there is another clear diagnosis, he favors the option of an anterior cervical fusion at C5-6 to exclude the possibility of spinal cord compression as the source of her symptoms. We are going to obtain a thoracic MRI just as a precaution but if this is negative, we will offer her anterior cervical fusion. I did sit down with her, review her imaging and discuss this with her at length. Thank you for allowing us to care for your patient. The total time spent with this visit with this patient was 45 minutes reviewing history, physical exam, cervical imaging review, and implementation of treatment plan or further diagnostic testing Refugio Keys MD,PhD [facility] Orders: Orders MR thoracic spine wo con Today G82.20 - Paraplegia, unspecified, R26.9 - Unspecified abnormalities of gait and mobility Coding Level of Care Code New Pt Level 4 (82941) Diagnoses Paraparesis G82.20 Gait abnormality R26.9
[2024-08-26 13:04] VITALS: BMI 24.5
--- OUTSIDE RECORDS SUMMARY | 2024-08-26 13:08 | XMS_ITS | Patient Health Record ---
Author Organization [facility] Address [address] [place] [address] Care Team Providers Care Fountain Clerk Name Role Phone DWAYNE SAMS Primary Care Provider MadhavAudrey waltersissalenin Unavailable [phone] Allergies No Known Allergies Results Component Value Reference Range Notes Hgb A1c with eAG Estimation- [id number] Reviewed date:09/03/2023 04:21:59 PM Interpretation: Performing Lab:[facility], [address] [place] [address], Phone - [phone], Director - MDJodry Notes/Report: Hemoglobin A1c 6.4 4.8-5.6 % . Prediabetes: 5.7 - 6.4 Diabetes: >6.4 Glycemic control for adults with diabetes: <7.0 Estim. Avg Glu (eAG) 137 Albumin/Creatinine Ratio,Uri ne-[id number] Reviewed date:09/03/2023 04:22:01 PM Interpretation: Performing Lab:[facility], [address] [facility], Phone - [phone], Director - MDJodry Notes/Report: Creatinine, Urine 86.1 Not Estab. mg/dL Albumin, Urine 5.5 Not Estab. ug/mL Alb/Creat Ratio 6 0-29 mg/g creat Normal: 0 - 29 Moderately increased: 30 - 300 Severely increased: >300 LP+Non-HDL Cholesterol-33907 5 Reviewed date:09/03/2023 04:22:03 PM Interpretation: Performing Lab:[facility], [address] [facility], Phone - [phone], Director - MDJodry Notes/Report: Cholesterol, Total 168 100-199 mg/dL Triglycerides 102 0-149 mg/dL HDL Cholesterol 60 >39 mg/dL VLDL Cholesterol Hung 18 5-40 mg/dL LDL Chol Calc (NIH) 90 0-99 mg/dL Non-HDL Cholesterol 108 0-129 mg/dL Comp. Metabolic Panel (14)-3 [id number] Reviewed date:09/03/2023 04:21:55 PM Interpretation: Performing Lab:[facility], [address] [facility] [place], Phone - [phone], Director - Timmy Notes/Report: Glucose 112 70-99 [...] 0-40 IU/L ALT (SGPT) 23 0-32 IU/L Hemoglobin [id number]-[id number] Reviewed date:04/08/2024 09:19:20 AM Interpretation: Performing Lab:[facility], [address] [facility] [place], Phone - [phone], Director - Timmy Notes/Report: Hemoglobin A1c 6.3 4.8-5.6 % . Prediabetes: 5.7 - 6.4 Diabetes: >6.4 Glycemic control for adults with diabetes: <7.0 Reason For Referral Reason Evaluation and manag ement Diagnosis 1 Other abnormalities of gait and mobility (R26.89) Referral Organization [facility] Referring Provider First Name DWAYNE Referring Provider Last Name LEATHA Referring Provider Speciality Internal M edicine Referred Provider Specialty Neurology General Notes Referral faxed to [facility] (Tanya Naidu MD) - Dept will call patient for scheduling., Truman Olson 09/08/2023 11:53:25 AM > Referral Priority Routine Reason please evaluate and treat-[facility] bhargav Diagnosis 1 Gait instability (R2 6.81) Referral Organization [facility] Referring Provider First Name Jenn Referring Provider Last Name Jody Referred Provider Specialty Physical The rapist General Notes referral sent to [facility] physical therapy. Please contact patient for scheduling, [...] Status W/U Status Risk Notes Problem Glaucoma (12105543) Unspecified glaucoma (H40.9) Active confirmed Problem Hearing loss (21994612) Unspecified hearing loss, unspecified ear (H91.90) Active confirmed Problem Atherosclerotic heart disease of [place] coronary artery without angina pectoris (132858022110108) Atherosclerotic heart disease of [place] coronary artery without angina pectoris (I25.10) Active confirmed Problem Non-neoplastic nevus (200923164) Nevus, non-neoplastic (I78.1) Active confirmed Problem Vascular disorder of intestine (489001554) Vascular disorder of intestine, unspecified (K55.9) Active confirmed Problem Celiac disease (706884374) Celiac disease (K90.0) Active confirmed Problem Muscle weakness (47409044) Muscle weakness (generalized) (M62.81) Active confirmed Problem Age-related osteoporosis (362984297) Age-related osteoporosis without current pathological fracture (M81.0) Active confirmed Problem Abnormal gait (69244151) Other abnormalities of gait and mobility (R26.89) Active confirmed Problem Hyperlipidemia (90375700) Hyperlipidemia, unspecified (E78.5) Active confirmed Problem Essential hypertension (93031681) Essential (primary) hypertension (I10) Active confirmed Problem Abnormal gait (46051694) Gait instability (R26.81) Active confirmed Vital Signs Heart Rate 68 /min 04/12/2024 Temperature 95.1 degrees Fahrenheit 04/12/2024 Oximetry 95 % 04/12/2024 Blood pressure diastolic 70 mm Hg 04/12/2024 Height 57.01 in 04/12/2024 Blood pressure systolic 100 mm Hg 04/12/2024 Weight 110.2 lbs 04/12/2024 BMI 23.84 kg/m2 04/12/2024 Encounters Encounter Location Date Provider Diagnosis [address] [place] [address] 04/05/[address] [place] [address] 04/12/[address] [place] [address] 04/05/[address] [place] [address] 04/12/2024 [facility] Atherosclerotic hear t disease of [place] coronary artery without angina pectoris I25.10 ; Essential (primary) hypertension I10 ; Hyperlipidemia, unspecified E78.5 ; Impaired fasting glucose R73.01 ; Unspecified glaucoma H40.9 ; Other abnormalities of gait and mobility R26.89 and Gait instability R26.[address] [place] [address] 09/07/2023 [facility] Encounter for [facility] adult medical examination without abnormal findings Z00.00 ; Atherosclerotic heart disease of [place] coronary artery without angina pectoris I25.10 ; Essential (primary) hypertension I10 ; Hyperlipidemia, unspecified E78.5 ; Impaired fasting glucose R73.01 ; Unspecified glaucoma H40.9 ; Other abnormalities of gait and mobility R26.89 and Muscle weakness (generalized) M62.81 Assessments Encounter Date Diagnosis (ICD Code) Assessment Notes Treatment Notes Treatment Clinical Notes Section Notes 04/12/2024 Atherosclerotic heart disease of [place] coronary artery without angina pectoris (ICD-10 - [...] cataract surgery last year. She sees her central processing technician regularly. Gait instability. -She uses a cane to walk outside. She is interested in PT. -She will start seeing -janes t disorders-botox injections. General health concerns discussed with patient. I have rendered the services for this patient under direct supervision of Dr. Sams, who did not see the patient but was available upon request 09/07/2023 Atherosclerotic heart disease of [place] coronary artery without angina pectoris (ICD-10 - [...] cataract surgery last year. She sees her central processing technician regularly. Gait instability. She uses a cane [...] her HCP is her daughter Debby Fontanez. [phone] General health concerns discussed with patient. Scribe services used to formulate this note under HIPAA compliance and under [place] law mandated for scribe services. Patient aware [...] cataract surgery last year. She sees her central processing technician regularly. Gait instability. She uses a cane [...] her HCP is her daughter Debby Fontanez. [phone] General health concerns discussed with patient. Scribe services used to formulate this note under HIPAA compliance and under [place] law mandated for scribe services. Patient aware of service. Verbal consent and written consent taken from the patient. Patient understands and verbalizes understanding of the scribes services and all questions answered regarding scribes services. Patient agrees to use of scribes services. 09/07/2023 Essential (primary) hypertension (ICD-10 - I10) [...] cataract surgery last year. She sees her central processing technician regularly. Gait instability. She uses a cane [...] her HCP is her daughter Debby Fontanez. [phone] General health concerns discussed with patient. Scribe services used to formulate this note under HIPAA compliance and under [place] law mandated for scribe services. Patient aware [...] cataract surgery last year. She sees her central processing technician regularly. Gait instability. -She uses a cane [...] cataract surgery last year. She sees her central processing technician regularly. Gait instability. -She uses a cane to walk outside. She is interested in PT. -She will start seeing Dr.Athreya-movemen cuauhtemoc pacheco-botox injections. General health concerns discussed with patient. I have rendered the services for this patient under direct supervision of Dr. Sams, who did not see the patient but was available upon request 09/07/2023 Hyperlipidemia, unspecified (ICD-10 - E78.5) Pia [...] cataract surgery last year. She sees her central processing technician regularly. Gait instability. She uses a cane [...] her HCP is her daughter Debby Fontanez. [phone] General health concerns discussed with patient. Scribe services used to formulate this note under HIPAA compliance and under [place] law mandated for scribe services. Patient aware of service. Verbal consent and written consent taken from the patient. Patient understands and verbalizes understanding of the scribes services and all questions answered regarding scribes services. Patient agrees to use of scribes services. 09/07/2023 Impaired fasting glucose (ICD-10 - R73.01) [...] cataract surgery last year. She sees her central processing technician regularly. Gait instability. She uses a cane [...] her HCP is her daughter Debby Fontanez. [phone] General health concerns discussed with patient. Scribe services used to formulate this note under HIPAA compliance and under [place] law mandated for scribe services. Patient aware [...] cataract surgery last year. She sees her central processing technician regularly. Gait instability. -She uses a cane [...] cataract surgery last year. She sees her central processing technician regularly. Gait instability. -She uses a cane [...] cataract surgery last year. She sees her central processing technician regularly. Gait instability. She uses a cane [...] her HCP is her daughter Debby Fontanez. [phone] General health concerns discussed with patient. Scribe services used to formulate this note under HIPAA compliance and under [place] law mandated for scribe services. Patient aware of service. Verbal consent and written consent taken from the patient. Patient understands and verbalizes understanding of the scribes services and all questions answered regarding scribes services. Patient agrees to use of scribes services. 09/07/2023 Other abnormalities of gait and mobility [...] cataract surgery last year. She sees her central processing technician regularly. Gait instability. She uses a cane [...] her HCP is her daughter Debby Fontanez. [phone] General health concerns discussed with patient. Scribe services used to formulate this note under HIPAA compliance and under [place] law mandated for scribe services. Patient aware of service. Verbal consent and written consent taken from the patient. Patient understands and verbalizes understanding of the scribes services and all questions answered regarding scribes services. Patient agrees to use of scribes services. 04/12/2024 Other abnormalities of gait and mobility [...] cataract surgery last year. She sees her central processing technician regularly. Gait instability. -She uses a cane [...] cataract surgery last year. She sees her central processing technician regularly. Gait instability. -She uses a cane to walk outside. She is interested in PT. -She will start seeing -laurimen t disorders-botox injections. General health concerns discussed with patient. I have rendered the services for this patient under direct supervision of Dr. Sams, who did not see the patient but was available upon request 09/07/2023 Muscle weakness (generalized) (ICD-10 - M62.81) [...] cataract surgery last year. She sees her central processing technician regularly. Gait instability. She uses a cane [...] her HCP is her daughter Debby Fontanez. [phone] General health concerns discussed with patient. Scribe services used to formulate this note under HIPAA compliance and under [place] law mandated for scribe services. Patient aware of service. Verbal consent and written consent taken from the patient. Patient understands and verbalizes understanding of the scribes services and all questions answered regarding scribes services. Patient agrees to use of scribes services. Plan Of Treatment Pending Test Test Name [...] Provider Name:Jenn prieto, 09/13/2024 02:00:00 PM, [address] [place] [address], [phone], Insurance Providers Payer Name Payer Address Payer Phone Subscriber Number Group Number Insured Name Patient Relationship to Insured Coverage Start Date Coverage End Date Medicare [address] [place] [address] [id number] Pia Fontanez Self - patient is the insured 2 [facility] [address] [place] [address] [phone] [id number] Pia Fontanez Self - patient is the insured 8 Medical (General) History Medical History History ICD Code Atherosclerotic heart diseas e of [place] coronary artery without angina pectoris and see Dr Quiñones Other fatigue Hyperlipidemia, unspecified Essential (primary) hypertension Irritable bowel syndrome without diarrhe a Low back pain Age-related osteoporosis without current pathological fracture CAD. Proximal left circumfle x stent in 2000. Proximal LAD stent 2000. MIKA proximal RCA 2019 at [facility]. 70% in-stent restenosis in LAD. PD See Dr Larry Santoro at [facility] Surgical History Surgery Date(Month/Year) cholecystectomy ear surgery balloon angioplasty x2
== END 2024-08-26 14:07 | disposition home or self-care (01) ==
LOC: HO.HNS 12:55
PROVIDERS: PCP Hospitalist; Referring Provider Psychiatry & Neurology Neurology; Visit Provider Physician Assistant
DX: G82.20 Paraplegia, unspecified (principal); R26.9 Unspecified abnormalities of gait and mobility
CPT/HCPCS: 99204

== ENCOUNTER → 2024-08-26 12:54 | Outpatient (BNVA) | payer MEDICARE, BC, SELFPAY | PROVIDERS: PCP Hospitalist; Referring Provider Psychiatry & Neurology Neurology; Visit Provider Physician Assistant | DX: G82.20 Paraplegia, unspecified (principal); R26.9 Unspecified abnormalities of gait and mobility | CPT/HCPCS: 99202 ==

== ENCOUNTER 2024-09-23 16:54 | Outpatient (REF) | payer MEDICARE, BC, SELFPAY ==
--- NOTE | ~2024-09-23 | MR_ITS ---
EXAMINATION: MR THORACIC SPINE WITHOUT CONTRAST TECHNIQUE: Multiplanar multisequence MR imaging of the thoracic spine was performed f covering at least C7-L1 without contrast. INDICATION: R26.9 - Unspecified abnormalities of gait and mobility PRIOR: None FINDINGS: Marrow and end-plates: Modic 1 signal changes present posterior to the T12-L1, L2-3, and L3-4. Alignment: Vertebral body height and alignment is preserved. Soft tissues: Paraspinal soft tissues and major vascular structures are unremarkable. Cord: There is no abnormal cord signal. There is no hydrosyringomyelia. The termination of conus medullaris is within normal limits at the level of L1. T10-11: There is mild loss disc height and circumferential disc bulge indenting thecal sac resulting in borderline mild spinal stenosis. There is mild foraminal narrowing. T11-12: Superficial broad-based disc bulge does not result in spinal stenosis. There is mild bilateral foraminal narrowing. T12-L1: Circumferential broad-based disc bulge indents thecal sac without causing spinal stenosis. There is minimal right foraminal narrowing and no left-sided narrowing. L2-3: Broad-based disc bulge and left central and subarticular zone extrusion mildly encroaches on left L3 nerve roots. There is minimal foraminal narrowing. Thoracic disc levels not specifically described demonstrated no disc bulge, herniation, spinal stenosis, or foraminal narrowing. MR/MR thoracic spine wo con IMPRESSION: L2-3: Disc bulge and herniation mildly encroaches on left L3 nerve roots in the lateral recess. Electronically signed by: Brennon Mo MD 09/23/2024 05:43 PM EDT
== END 2024-09-23 16:55 | disposition home or self-care (01) ==
LOC: HO.MRI 16:54
PROVIDERS: PCP Hospitalist; Visit Provider Physician Assistant
DX: R26.9 Unspecified abnormalities of gait and mobility (principal); G82.20 Paraplegia, unspecified
CPT/HCPCS: 72146

== ENCOUNTER → 2024-09-23 17:00 | Outpatient (BNV) | payer MEDICARE, BC, SELFPAY | PROVIDERS: PCP Hospitalist; Visit Provider Radiology Diagnostic Radiology | DX: R26.9 Unspecified abnormalities of gait and mobility (principal) | CPT/HCPCS: 72146 ==

== ENCOUNTER 2024-10-14 08:45 | Outpatient (AMB) | payer MEDICARE, BC, SELFPAY ==
--- OUTSIDE RECORDS SUMMARY | 2024-10-14 08:50 | XMS_ITS | Clinical Summary ---
Author Organization [facility] Address [address] [place] [address] Care Team Providers Care Boarding Room Fixer Name Role Phone Dwayne Sams MD Primary Care Provider [phone] Medications metoprolol succinate (Toprol XL) 50 mg 24 hr tablet Take 1 tablet (50 mg total) by mouth 1 (one) time each day. Do not crush or chew. 90 each 2 02/11/2024 Active rosuvastatin (CRESTOR) 10 mg tablet TAKE 1 TABLET BY MOUTH DAILY 90 tablet 1 08/08/2024 Active Encounters Date Type Department Care Team Description 07/27/2024 Telephone [facility] [address] [place] [address] Jimmy Quiñones MD Scheduling Recall [...] Annual Wellness Visit 09/05/2023 09/04/2022 COVID-19 Vaccine (1 - 2023-2 5 season) 2023 Influenza Vaccine (#1) 2024 , 01/01/2017 Osteoporosis Screening (Bone Density Screening) 10/03/2032 [...] Recently Relevant to Health Maintenance Results * [facility] DEXA AXIAL SKELETON (10/03/2022 7:39 AM EDT) Anatomical Region Laterality Modality Mammography 10/02/2022 1:34 PM EDT Narrative 10/03/2022 7:39 AM EDT [facility] Diagnostic Imaging Department [address] [place] [address] Patient: MAHESHFLORI Stacey PetersonB./Age/Sex: 1945 - 77 - F Unit#: [id number] [facility] Ordering Physician: DWAYNE SAMS MD [facility] Dexa Axial Skeleton - 10/02/22 - [id number] Report Status:Signed HISTORY: The patient is a 77-year-old postmenopausal female with clinical concern for metabolic bone disease. FINDINGS: Dual [...] of age matched controls. This yields a T-score of -1.4 and a [...] the prior examination of 02/28/2021. There has been an increase of 2.2% in bone mineral density in the right femur and a decrease of 2.7% in bone mineral density in the left femur. 2. FRAX analysis yields a 10-year probability of major osteoporotic fracture of 25.8% and a 10-year probability of hip fracture of 8.1%. Code 11976 Dictating Physician: BRANT VILLALBA MD Electronically Signed by: BRANT VILLALBA MD Dic Date/Time: 10/03/22737 Sign date/Time: 10/03/22738 Procedure Note Brant Villalba MD - 05/05/2023 [facility] Diagnostic Imaging Department [address] [place] [address] Patient: FLORI FONTANEZ./Age/Sex: 1945 - 77 - F Unit#: [id number] Location/Status: [facility] Ordering Physician: DWAYNE SAMS MD [facility] Dexa Axial Skeleton - 10/02/22 - [id number] Report Status:Signed HISTORY: The patient is a [...] density of the femurs bilaterally is 0.831 gm/re2srweu is 83% of that of young normals [...] probability of hip fracture of 8.1%. Code 46999 Dictating Physician: BRANT VILLALBA MD Electronically Signed by: BRANT VILLALBA MD Dic Date/Time: 10/03/22 0738 Sign date/Time: 10/03/2239 Dwayne Sams MD IMG BI PROCEDURES Final Result from Last 3 Months or Most Recently Relevant to Health Maintenance Care Teams Boarding Room Fixer Relationship Specialty Start Date End Date Dwayne Sams MD [address] [place] [address] PCP - General 05/10/12
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
--- NOTE | 2024-10-14 08:54 | A.OFFVIS_ITS ---
Vital Signs 10/14/24 09:00 Height 4 ft 9 in Weight 113 lb BMI 24.5 Intake Visit Reasons: PHYS ASST-Paraplegia, interested in botox Intake Note: Pia is a 79 year old female who presents today as a new patient for Paraplegia, interested in Botox injection. Tanya Camacho referred patient from [facility] 08/08/24. Patient had an MRI of the Lumbar and Cervical spine done on 08/23/24. Patient had a thoracic spine MRI done on 09/23/24. Patient states she had polio when younger and believes it is affecting her legs. States she walks dragging her feet. She is having tingling in the middle of night and is not able to sleep. Patient would like to discuss botox injections. Allergies No Known Allergies Allergy (Verified 10/14/24 09:02) HPI Comments Details: Referred from Neurology for consideration of botulinum toxin injections. Patient has had at least 6 years of progressive worsening of gait and lower extremity weakness. Etiology is still unknown, question post-polio, question hereditary spastic paraparesis. Patient saw neuro spine and they are considering ACDF for C5-C6, due to cord compression seen on MRI. Surgery has not been scheduled yet and patient is to call neuro spine department to discuss. Describes her legs as very weak. Getting slower with walking even with cane. Urinary urgency but no incontinence. On gluten free diet which helps with bowels. No numbness or pain on legs. She complains of neck and back pain. She also complains of some groin pain and knee pain with walking. She was given AFOs bilateral by PT but she does not wear them. 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 Patient was appropriately conversant and oriented. Good historian. MSK: No specific abnormalities found on inspection of the spine and all extremities. No pain with palpation over the lumbar area. Lumbar ROM was full. Neurological: Bilateral upper extremities 5/5 strength Bilateral hip flexors 4/5, knee extensors 5/5, dorsiflexors appeared 5/5, EHL 2/5. This was tested while seated. With gait, it is more obvious that she has bilateral footdrop, left definitely worse than right, dragging left foot. No heel strike. Giorgio 0 on bilateral lower extremity. No increased tone noted. Negative Babinski. No clonus. Reflexes patella brisk 2+ bilateral, 1 on bilateral ankles. Vital Signs: BMI result Body Mass Index 24.5 Results Reviewed Results Reviewed: I reviewed records from the following: Neurology Neuro spine Assessment & Plan Assessment & Plan (1) Gait abnormality: Code(s): R26.9 - Unspecified abnormalities of gait and mobility Category: Medical (2) Paraparesis: Comment: with mild spasticty ? post polio ? hereditary spastic parapareis Code(s): G82.20 - Paraplegia, unspecified Category: Medical Plan At least 6 years of progressive gait abnormality. Weakness on bilateral hip flexors and dorsiflexors. No obvious spasticity on exam today. Etiology? Neuro spine considering ACDF C5-6. Based on exam today, I do not see clear indication that botulinum toxin injection would help. Would be happy to re-evaluate her in 1 month or after surgery if leg weakness would change. Would send for x-rays to help look for etiology. Sending for hip and knee x- rays today. Assessment and plan discussed with patient, and patient was agreeable. All questions were answered thoroughly. Follow up 4-6 weeks. Tess Kaplan MD, MICKEY Board Certified, [place] [employer] of Physical Medicine and Rehabilitation (ABPMR) Board Certified, [place] Board of Electrodiagnostic Medicine (ABEM) Orders: Orders XR knee RT 3V Today R26.9 - Unspecified abnormalities of gait and mobility XR knee LT 3V Today M25.50 - Pain in unspecified joint, R26.9 - Unspecified abnormalities of gait and mobility XR hip RT min 2V Today M25.551 - Pain in right hip, R26.9 - Unspecified abnormalities of gait and mobility XR hip LT min 2V Today M16.12 - Unilateral primary osteoarthritis, left hip, R26.9 - Unspecified abnormalities of gait and mobility Coding Level of Care Code New Pt Level 4 (07291) Diagnoses Gait abnormality R26.9 Paraparesis G82.20
[2024-10-14 09:00] VITALS: BMI 24.5
== END 2024-10-14 09:32 | disposition home or self-care (01) ==
LOC: HO.HOS 08:46
PROVIDERS: PCP Hospitalist; Visit Provider Physical Medicine & Rehabilitation
DX: R26.9 Unspecified abnormalities of gait and mobility (principal); G82.20 Paraplegia, unspecified
CPT/HCPCS: 99204

== ENCOUNTER 2024-10-14 08:45 | Outpatient (REF) | payer MEDICARE, BC, SELFPAY ==
--- NOTE | ~2024-10-14 | XR_ITS ---
CLINICAL HISTORY: R26.9 - Unspecified abnormalities of gait and mobility --- Additional Notes or Special Instructions: hip flexion weakness Exam: AP, lateral, and sunrise views of the right knee. Comparison: Left knee radiographs from same time. Findings: Bony alignment is anatomic. No fracture or joint effusion. Chondrocalcinosis is seen within both the medial and lateral compartments. Joint spaces are well preserved. Impression: Chondrocalcinosis. Otherwise, unremarkable right knee radiographs. This document has been electronically signed by: Kimani Solis MD on 10/15/2024 08:50:08
--- NOTE | ~2024-10-14 | XR_ITS ---
CLINICAL HISTORY: M25.551 - Pain in right hip --- Additional Notes or Special Instructions: hip flexion weakness Exam: AP and frog-leg lateral views of the right hip. Comparison: Left hip radiographs from same time. Findings: Bony alignment is anatomic. No fracture or erosion. Mild degenerative change of the right hip joint. Enthesopathic change of the greater trochanter and iliac crest. Impression: Mild right hip DJD. This document has been electronically signed by: Kimani Solis MD on 10/15/2024 08:49:03
--- NOTE | ~2024-10-14 | XR_ITS ---
CLINICAL HISTORY: M16.12 - Unilateral primary osteoarthritis, left hip --- Additional Notes or Special Instructions: hip flexion weakness Exam: AP and frog-leg lateral views of the left hip. Comparison: Right hip radiographs from same time. Findings: Bony alignment of the left hip joint is anatomic. No fracture or erosion. Hip joint spaces are well preserved. Impression: Negative left hip radiographs. This document has been electronically signed by: Kimani Solis MD on 10/15/2024 08:49:22
--- NOTE | ~2024-10-14 | XR_ITS ---
CLINICAL HISTORY: M25.50 - Pain in unspecified joint --- Additional Notes or Special Instructions: hip flexion weakness Exam: AP, lateral, and sunrise views of the left knee. Comparison: Right knee radiographs from same time. Findings: Bony alignment is anatomic. No fracture or joint effusion. Joint spaces are well preserved. Chondrocalcinosis is seen within the medial and lateral compartments. Impression: Chondrocalcinosis without additional findings. This document has been electronically signed by: Kimani Solis MD on 10/15/2024 08:52:30
== END 2024-10-14 08:46 | disposition home or self-care (01) ==
LOC: HO.HOSX 08:45
PROVIDERS: PCP Hospitalist; Visit Provider Physical Medicine & Rehabilitation
DX: R26.9 Unspecified abnormalities of gait and mobility (principal); G82.20 Paraplegia, unspecified; M25.551 Pain in right hip; M16.12 Unilateral primary osteoarthritis, left hip
CPT/HCPCS: 73502; 73562; 99202; 99212

== ENCOUNTER → 2024-10-14 09:17 | Outpatient (BNV) | payer MEDICARE, BC, SELFPAY | PROVIDERS: PCP Hospitalist; Visit Provider Radiology Diagnostic Radiology | DX: M25.551 Pain in right hip (principal); M16.12 Unilateral primary osteoarthritis, left hip; M11.261 Other chondrocalcinosis, right knee; M11.262 Other chondrocalcinosis, left knee | CPT/HCPCS: 73502; 73562 ==

== ENCOUNTER 2024-10-14 09:45 | Outpatient (AMB) | payer MEDICARE, BC, SELFPAY ==
--- NOTE | 2024-10-14 09:44 | A.SPINEOV_ITS ---
Intake Visit Reasons: follow up Intake Note: Ms. Fontanez is here today for a F/u. Human Resources Compliance Manager Required: No Allergies No Known Allergies Allergy (Verified 10/14/24 09:02) Assessment & Plan Assessment & Plan (1) Gait abnormality: Code(s): R26.9 - Unspecified abnormalities of gait and mobility Category: Medical Plan Mrs Fontanez came back to see us in follow-up. Please refer to my last note for the specifics of her problem. She has had issues with gait instability, and some degree of spasticity. Last time I saw her in the office with Dr. Keys she had a cervical MRI showing significant spinal cord compression at C5-6. Because of most of her symptoms were in the lower extremities we ordered a thoracic MRI here at [facility] and that did not show any evidence of impingement of the thoracic spinal cord so we are left with the compression at C5-6 as a potential source for her difficulty walking. She has had multiple other diagnosis excluded such as Parkinson's and NPH. She is getting frustrated with her lack of quality of life. I reviewed her imaging with her done here at [facility] with a cervical MRI comparing it to the 1 done in 2021 and it is clear that we can see progression of the disc bulging/herniation at C5-6 causing narrowing of the spinal canal and compression of the spinal cord. Dr. Keys last time was willing to offer her anterior cervical fusion at C5-6 so we discussed that procedure at length. She is willing to proceed. We have rocky hernandez scheduled her for November 24. I did ask her to contact her bed teacher or her PCP to get a cardiac clearance note. She understands that the goal of surgery is to stabilize her symptoms and not necessarily make her walking back to normal. There maybe underlying spinal cord injury that is irreversible so the idea here is to prevent her from getting worse. The patient was given risk and benefits of surgery including but not limited to infection, hematoma, nerve injury, durotomy, weakness, persistent pain. We discussed that if undergoing anterior cervical fusion there may be trachea or esophageal injury, hoarseness, or difficulty swallowing. There is a risk of pseudoarthrosis or instrumentation failure if undergoing cervical fusion. We also reviewed the option to continue with conservative treatment and patient wishes to proceed with surgery. They are aware they should stop NSAIDs 7 days prior to surgery. All questions were answered to the best of our ability. If there is anything about this patient's medical history that we have overlooked or concerns you have about us proceeding with surgery we would appreciate any input you can offer Total amount of time spent in this visit was 20 minutes in discussion of symptoms, [facility] cervical imaging results and subsequent plan of care Refugio Keys MD,PhD [facility] Coding Level of Care Code Est Pt Level 3 (87506) Diagnoses Gait abnormality R26.9
== END 2024-10-14 10:09 | disposition home or self-care (01) ==
LOC: HO.HNS 09:45
PROVIDERS: PCP Hospitalist; Visit Provider Physician Assistant
DX: R26.9 Unspecified abnormalities of gait and mobility (principal)
CPT/HCPCS: 99213

== ENCOUNTER 2024-12-12 15:28 | Outpatient (AMB) | payer MEDICARE, BC, SELFPAY ==
--- OUTSIDE RECORDS SUMMARY | 2024-04-05 09:30 | XMS_ITS ---
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 Name Role Phone DWAYNE SAMS Primary Care Provider Jenn Vera Unavailable [phone] REASON FOR VISIT Same day cancellation Encounters Encounter Location Date Provider Diagnosis [facility] [address] [place] [address] 04/05/2024 Jenn Vera Plan Of Treatment Next Appt Details Provider Name:DWAYNE SAMS , 06/07/2025 02:45:00 PM, [address], [place], [address], Progress Notes * Santa FONTANEZOB:1945 (79 yo F)Acc No.[id number]:04/05/2024 Progress Notes Patient: Pia SIMS Appointment Provider: Gerry Vera :1945 A ge:79 Y S ex:Female Date:04/05/2024 Address:[address] [place], [place] [id number] Pcp:DWAYNE SAMS Subjective: * Chief Complaints: * 1 . Same day cancellation. * Medical History: Objective: * Vitals: Assessment: Plan: * Treatment: * Procedure Codes: N OSHO NO SHOW FEE * Images: * Electronic signature of Cary Vera PA-C on 12/12/2024 at 08:53 PM EDT Sign off status: Pending * Appointment Provider: Gerry Vera Date: 0 04/05/2024 Generated for Beto mcdowell/Luciana/Marilyn on: 0 12/12/2024 08:53 PM EDT
--- OUTSIDE RECORDS SUMMARY | 2024-12-08 10:30 | XMS_ITS ---
Author Organization [employer] Address [address] [facility] [place] [address] Care Team Providers Care Lead Radiation Therapist Name Role Phone DWAYNE SAMS Primary Care Provider [phone] Saad Spangler Unavailable [phone] REASON FOR VISIT Medicare Wellness Medications Medication SIG (Take, Route, Frequency, Duration) Notes Start Date End Date Status Super B Complex one daily Not- Taking Voltaren - - as directed Externally Apply 2 grams to affected area twice a day as needed; Duration: 30 days 09/12/2020 Not-Taking Metoprolol Succinate ER 50 MG 1 tablet Orally Once a day; Duration: 90 days Active Meclizine HCl 12.5 MG 1 tablet as needed Orally every 12 hrs; Duration: 30 days 05/29/2023 Active Lisinopril 10 MG 1 tablet Orally Once a day; Duration: 30 Not-Taking Timolol Maleate 0.5 % (DAILY) 1 drop into affected eye Ophthalmic Once a day Active Latanoprost 0.005 % 1 drop into affected eye in the evening Ophthalmic Once a day Active Nitroglycerin 0.4 MG as directed Sublingual Active Aspirin Adult Low Strength 81 MG 1 tablet Orally Once a day; Duration: 30 day(s) Active Caltrate 600+D 600-800 MG-UNIT 1 tablet with a meal Orally Once a day; Duration: 30 day(s) Active Alendronate Sodium 70 MG 1 tablet 30 min utes before the first food, beverage or medicine of the day dissolved in 4 ounces of water Orally Once a week Active Rosuvastatin Calcium 10 MG 1 tablet Orally Once a day Active B Complex - as directed Orally Active Culturelle - as directed Orally one capsule daily Active Vitamin D3 50 MCG (1999 UT) 1 tablet Orally Once a day Active Problems Problem Type SNOMED Code ICD Code Onset Dates Problem Status W/U Status Risk Notes Problem Atherosclerotic heart disease of [place] coronary artery without angina pectoris (676166255980428) Coronary artery disease involving [place] coronary artery of [place] heart without angina pectoris (I25.10) Active confirmed Problem Bilateral absolute glaucoma ([id number]) Absolute glaucoma, 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 Encounters Encounter Location Date Provider Diagnosis [facility] [address] [address] 12/08/2024 Saad Spangler Encounter for genera l adult medical examination without abnormal findings Z00.00 ; Essential hypertension I10 ; Impaired fasting blood sugar R73.01 ; Hyperlipidemia, mixed E78.2 ; Coronary artery disease involving [place] coronary artery of [place] heart without angina pectoris I25.10 and Absolute glaucoma, bilateral H44.513 Assessments Encounter Date Diagnosis (ICD Code) Assessment Notes Treatment Notes Treatment Clinical Notes Section Notes 12/08/2024 Encounter for general adult medical examination without abnormal findings (ICD-10 - Z00.00) 12/08/2024 Essential hypertension (ICD-10 - I10) 12/08/2024 Impaired fasting blood sugar (ICD-10 - R73.01) 12/08/2024 Hyperlipidemia, mixed (ICD-10 - E78.2) 12/08/2024 Coronary artery disease involving [place] coronary artery of [place] heart without angina pectoris (ICD-10 - I25.10) 12/08/2024 Absolute glaucoma, bilateral (ICD-10 - H44.513) Plan Of Treatment Next Appt Details Provider Name:DWAYNE SAMS , 06/07/2025 02:45:00 PM, [address] [place] [address], [place], [address], Progress Notes * Santa FONTANEZOB:1945 (79 yo F)Acc No.[id number]:12/08/2024 Progress Note Patient: Pia SIMS Provider: Stacey Spangler, :1945 A ge:79 Y S ex:Female Date:12/08/2024 Address:[address] [place] [address] [id number] Pcp:DWAYNE SAMS Subjective: * Chief Complaints: * 1 . Medicare Wellness. * HPI: P atient Care Team: - N o Providers on Record. M josselyn Annual Visit: Type of Visit - S ubsequent Annual Wellness Visit Language or Communication barrier addressed - Y es Health Risk Assessment D EMOGRAPHICS - - How old are you? _ _ - How would you best describe your ethnicity??__ - How would you describe your marital status??__ - How would you describe your employment status? _ _ - How many children do you have? N one R ISK ASSESSMENT - - Do you currently use tobacco products? N o - Have you ever used tobacco products? N o - What type of tobacco do you use or have you used? _ _ - (If cigarette smoker) How long have you smoked? _ _ - (If cigarette smoker) How many cigarettes do you smoke per day? _ _ - How many alcoholic beverages (i.e. 1oz hard liquor, one glass of wine, one bottle of beer) do you drink daily, on average? N one - Have you ever felt the need to cut down on drinking? N o - Have people annoyed you with criticism of your drinking? N o - Do you or have you felt guilty for drinking? N o - Have you ever felt the need to drink first thing in the morning to steady your nerves or to get rid of a hangover? N o - How often do you exercise? N ever - How vigorously can you exercise? M inimally - How often do you use seatbelts? A lways - In the past month, how often have you had sex? _ _ - Do you have any significant difficulties or dysfunction during sex? N o, never - How many partners do you have? _ _ - How often do you experience pain with sex??Never - How often do you use condoms during sex??Always M ENTAL HEALTH ASSESSMENT - - In the past two weeks, how often have you felt depressed, down or hopeless? N ever - In the past month, how often have you felt anxious or stressed? N ever - What is your average level of daily stress??None - In the past two weeks, how often have you felt a lack of pleasure or interest in doing things? N ever - In the past two weeks, how often have you had difficulty falling asleep or episodes of sleeping too long? N ever - In the past two weeks, how often have you had a lack of energy? N ever - In the past two weeks, how often have you had feelings of being better off or thoughts of harming yourself? N ever - Have you ever attempted to harm yourself??No G ENERAL HEALTH/PAIN ASSESSMENT - - In the past month, how often did you experience pain? N ever - In the past month, how much has pain affected your ability to work? N ot at all - In the past month, how much has pain affected your ability to walk? N ot at all - In the past month, how much has pain affected your relationship with other people? N ot at all - On a scale of 1-10, how bad would you rate your average daily pain? N o pain - How would you describe the ease with which you can prepare your own food? V mara easy - How would you describe the ease with which you can bathe or clean yourself? V mara easy - How would you describe the ease with which you can dress yourself? V mara easy - How hard is it to use the toilet by yourself? N ot hard at all - How would you describe the ease with which you can do your own shopping? V mara easy - How would you describe the ease with which you can get around your house? V mara easy - How would you describe your ability to pay your bills? V mara good - How would you describe your ability to plan your daily and monthly budgets? V mara good - How would you describe your ability to do routine housework? V mara good H OME SAFETY/ASSISTANCE - - Do you feel like you are safe in your current home? Y es - How many times have you fallen in your home? N ever - How much would you need to change your living circumstances to feel safe? N ot at all - Do you feel that living somewhere else would be good for you? N o - How much help do you feel you need at home??None at all - How much does your family help with daily or routine chores? N ot at all Immunization Status addressed - Y es Depression Screening - P HQ9 done Vision Screening - N ot done Hearing Screening - N ot done Fall Risk and Home Safety - N egative, no falls in the past year, no difficulty walking, or getting out of bed or chair M edication evaluation and reconcilliation performed Y es V ision screening recommended Y es L iterature offered to the patient Y es R eferrals p hysical therapy offered for gait balance and mobility evaluation, fall prevention home evauation offered, DEXA screening offered G et Up and Go Evaluation u nder 20 seconds Psychosocial Risks - N o overt psychosocial risks shown, observed, or mentioned Behavioral Risks - P atient seems very well adjusted and no behavorial issues noted Activities of daily living - N ot impaired Cognitive Screening - N o overt cognitive deficiency is apparent by direct observation I nternal Medicine: Pia is a 79 year old lady [...] any other active issues or concerns. * ROS: G eneral/Constitutional: Overall health G ood. C hange in appetite d enies.?Chills d enies. F atigue d enies. F ever d enies. N ight sweats d enies. S leep disturbance d enies. W eight gain d enies. W eight loss a dmits, 5 p ounds. N eurologic: Difficulty speaking d enies. D izziness d enies.?Gait abnormality d enies. H eadache d enies. L oss of strength a dmits. M minna loss d enies. S eizures d enies. T ingling/Numbness d enies . O phthalmologic: Blurred vision d enies. D ischarge d enies. D ry eye d enies. R ed eye d enies. E NT: Change in Voice D enies. C old Symptoms D enies.?Cough D enies. D izziness A dmits. N belle Congestion D enies. O talgia?Denies. p ostnasal drip D enies. B locked ear d enies. N osebleed d enies. S noring d enies. C ardiovascular: Diaphoresis D enies. P edal Edema D enies. P ND (Paroxsymal nocturnal dyspnea) D enies. C hest pain d enies. D ifficulty laying flat d enies. D yspnea on exertion d enies. H eart murmur d enies. O rthopnea?denies. R espiratory: Snoring d enies. A sthma d enies. C ough d enies. S hortness of breath with exertion d enies. S putum production d enies. W heezing d enies. G astrointestinal: Change in bowel habits d enies. C onstipation d enies. D ecreased appetite d enies. D iarrhea d enies. H eartburn d enies. N ausea d enies. V omiting d enies. M usculoskeletal: tingling/numbness D enies. m yalgias D enies. J oint Swelling D enies. e xtremeties n ormal. A rthritis d enies. B ack problems d enies. C arpal tunnel d enies. J oint stiffness d enies. M uscle aches d enies. E ndocrine: Bowel Changes D enies. B reast Discharge D enies.?poor libido D enies. C old intolerance d enies. E xcessive sweating d enies.?Excessive thirst d enies. F requent urination d enies. T hyroid problems d enies. S kin: Bruising D enies. E czema d enies. H air changes d enies. R nahomy d enies. S kin lesion(s) d enies. P sychiatric: Anxiety d enies. D epressed mood d enies. D ifficulty sleeping d enies. N ervous breakdown d enies. S ubstance abuse d enies.? U rology: abnormal menstrual bleeding d enies. b lood in urine?denies. b urning on urination d enies. d ifficulty urinating d enies. d ischarge d enies. d ysuria d enies. * Medical History: A therosclerotic heart disease of [place] coronary artery without angina pectoris and see Dr Quiñones, Other fatigue, Hyperlipidemia, unspecified, Essential (primary) hypertension, Irritable bowel syndrome without diarrhea, Low back pain, Age- related osteoporosis without current pathological fracture, CAD. Proximal left circumflex stent in 2000. Proximal LAD stent 2000. MIKA proximal RCA 2019 at [facility]. 70% in-stent restenosis in LAD., PD See Dr Larry Santoro at [facility], [facility]. * Surgical History: c holecystectomy , ear surgery , balloon angioplasty x2 . * Family History: F ather: , lung cancer, diagnosed with Hypertension. M other: alive, hyperlipidemia. * Medications: T aking B Complex - Capsule as directed Orally , Taking Alendronate Sodium 70 MG Tablet Effervescent 1 tablet 30 minutes before the first food, beverage or medicine of the day dissolved in 4 ounces of water Orally Once a week , Taking Rosuvastatin Calcium 10 MG Tablet 1 tablet Orally Once a day , Taking Culturelle - Capsule as directed Orally one capsule daily , Taking Vitamin D3 50 MCG (2000 UT) Tablet Chewable 1 tablet Orally Once a day , Taking Timolol Maleate 0.5 % (DAILY) Solution 1 drop into affected eye Ophthalmic Once a day , Taking Latanoprost 0.005 % Solution 1 drop into affected eye in the evening Ophthalmic Once a day , Taking Aspirin Adult Low Strength 81 MG Tablet Delayed Release 1 tablet Orally Once a day , Taking Caltrate 600+D 600-800 MG-UNIT Tablet 1 tablet with a meal Orally Once a day , Taking Nitroglycerin 0.4 MG Tablet Sublingual as directed Sublingual , Taking Metoprolol Succinate ER 50 MG Tablet Extended Release 24 Hour 1 tablet Orally Once a day , Taking Meclizine HCl 12.5 MG Tablet 1 tablet as needed Orally every 12 hrs , Not-Taking Super B Complex , Notes to Pharmacist: one daily, Not-Taking Voltaren - - Gel as directed Externally Apply 2 grams to affected area twice a day as needed , Not-Taking Lisinopril 10 MG Tablet 1 tablet Orally Once a day Objective: * Vitals: * Examination: G eneral Examination: GENERAL APPEARANCE: W ell developed, well nourished, in no acute distress. MUSCULOSKELETAL: N ormal. HEAD: N ormocephalic, atraumatic. EYES: P upils equal, round, reactive to light and accommodation, sclera non-icteric. EARS: N ormal. ORAL CAVITY: N ormal. THROAT: C lear. OROPHARYNX N ormal. SINUSES N ormal. NECK/THYROID: N harish supple, full range of motion, no cervical lymphadenopathy. SKIN: W arm and dry, no suspicious lesions. HEART: , S1, S2 normal, regular rate and rhythm. LUNGS: c lear to auscultation bilaterally. BREASTS: _ _. ABDOMEN: S oft, nontender, nondistended, bowel sounds present, normal. EXTREMITIES: N ormal. PERIPHERAL PULSES: N ormal. NEUROLOGIC: M uscle strength 4/5, bilateral. Psychiatry N ormal. FEMALE GENITOURINARY: _ _. MALE GENITOURINARY: _ _. PODIATRIC: N ormal. 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 Assessment: * Assessment: 1. E ncounter for general adult medical examination without abnormal findings - Z00.00 (Primary) 2 . E ssential hypertension - I10 3 . I mpaired fasting blood sugar - R73.01 4 . H yperlipidemia, mixed - E78.2 5 . C oronary artery disease involving [place] coronary artery of [place] heart without angina pectoris - I25.10 6 . A bsolute glaucoma, bilateral - H44.513 Plan: * Treatment: * Procedure Codes: G 0439 ANNUAL WELLNESS VST; PPS SUBSQT VST * Preventive Medicine: YOUR PREVENTIVE WELLNESS PLAN: B NJ, Height, and Weight: The Recommended Frequency is: A nnually B lood Pressure: The Recommended Frequency is: E very 2 years, if BP </= 120/80 mm Hg, Annually, if BP >120-139/80-89 mm Hg V ision: The Recommended Frequency is: E very 3 years up to age 40, Every 2 years aged 40+ A bdominal Aortic Aneurysm: The Recommended Frequency is: O nce, between the age range of 65-75 and for those who have smoked 100+ cigarettes in lifetime B reast Cancer Screening (Mammogram): The Recommended Frequency is: E very two years, ages 50-74 C ervical Cancer Screening (Pap Smear): The Recommended Frequency is: E very three years, ages 21-64, Every five years, ages 30-65 with HPV testing O steoporosis Screening (Bone Density Measurement): The Recommended Frequency is: R outinely, for women ages 65+, Routinely, for women ages 60-64 with risk factors C holesterol Testing: The Recommended Frequency is: R egularly beginning at age 20 with risk factors D iabetes Screening: The Recommended Frequency is: W ith a sustained BP >/= 135/80 mm Hg C olorectal Cancer Screening: The Recommended Frequency is: A nnually, Fecal Occult Blood Stool (FOBS), Every 5 years, Sigmoidoscopy with FOBS, Every 10 years, Colonoscopy S exually Transmitted Diseases (STDs): The Recommended Frequency is: A s necessary for those with risk factors D epression Screening: The Recommended Frequency is: A s necessary for those with risk factors A lcohol Misuse Screening: The Recommended Frequency is: A s necessary for those with risk factors P neumococcal (Pneumonia) Vaccine: The Recommended Frequency is: 1 -2 doses up to age 64, 1 dose age 65+ I nfluenza (Flu) Vaccine: The Recommended Frequency is: A nnually O ther: _ ___. M ajor Risk Factors: Your Risk Factors Include: F amily history of , Diabetes, Fall Risk, Hypertension, Obesity, Smoking Use, Other R ecommendations For Improvement The recommendations are: D iet, Exercise, Tobacco cessation, Weight management, Other A dditional Resources Included: f ollow-up instructions, handouts, referrals. C OVID (3) 2020, (1) 2022 FLU 2022 PCV 13 06/2016 PPV23 10/2012 TDAP [facility]OST[facility] 09/2011 BMD [facility] 09/2022 COLONOSCOPY EYE EXAM OBJECT ORIENTED DEVELOPER MAMMOGRAM [facility] 09/2024 This plan was discussed, printed, and handed to patient. * Images: * Electronic signature of Nicole Spangler on 12/12/2024 at 08:53 PM EDT Sign off status: Pending * Provider: Stacey Spangler, Date: 0 12/08/2024 Generated for Beto mcdowell/Luciana/Abigailitting on: 12/12/2024 08:53 PM EDT History and Physical Notes * HPI (History of Present Illness) Category Sub-Category Detail Notes Category Not es Medicare Annual Visit Type of Visit -: Subsequ ent Annual Wellness Visit Language or Communication barrier addressed -: Y es Health Risk Assessment DEMOGRAPHICS: - - How old are you?: __ - How would you best describe your [facility]?: __ - How would you describe your marital st atus?: __ - How would you describe your employment status?: __ - How many children do you have?: None RISK ASSESSMENT: - - Do you currently use tobacco products? : No - Have you ever used tobacco products?: No - What type of tobacco do you use or hav e you used?: __ - (If cigarette smoker) How long have yo u smoked?: __ - (If cigarette smoker) How many cigaret artis do you smoke per day?: __ - How many alcoholic beverag es (i.e. 1oz hard liquor, one glass of wine, one bottle of beer) do you drink daily, on average?: None - Have you ever felt the need to cut jeanmarie n on drinking?: No - Have people annoyed you with criticism of your drinking?: No - Do you or have you felt guilty for dri nking?: No - Have you ever felt the nee d to drink first thing in the morning to steady your nerves or to get rid of a hangover?: No - How often do you exercise?: Never - How vigorously can you exercise?: Mini josé miguel - How often do you use seatbelts?: Alway s - In the past month, how often have you had sex?: __ - Do you have any significan t difficulties or dysfunction during sex?: No, never - How many partners do you have?: __ - How often do you experience pain with sex?: Never - How often do you use condoms during se x?: Always MENTAL HEALTH ASSESSMENT: - - In the past two weeks, how often have you felt depressed, down or hopeless?: Never - In the past month, how often have you felt anxious or stressed?: Never - What is your average level of daily st ress?: None - In the past two weeks, how often have you felt a lack of pleasure or interest in doing things?: Never - In the past two weeks, how often have you had difficulty falling asleep or episodes of sleeping too long?: Never - In the past two weeks, how often have you had a lack of energy?: Never - In the past two weeks, how often have you had feelings of being better off or thoughts of harming yourself?: Never - Have you ever attempted to harm yourse lf?: No GENERAL HEALTH/PAIN ASSESSMENT: - - In the past month, how often did you e xperience pain?: Never - In the past month, how muc h has pain affected your ability to work?: Not at all - In the past month, how muc h has pain affected your ability to walk?: Not at all - In the past month, how muc h has pain affected your relationship with other people?: Not at all - On a scale of 1-10, how bad would you rate your average daily pain?: No pain - How would you describe the ease with which you can prepare your own food?: Very easy - How would you describe the ease with which you can bathe or clean yourself?: Very easy - How would you describe the ease with w hich you can dress yourself?: Very easy - How hard is it to use the toilet by yo urself?: Not hard at all - How would you describe the ease with which you can do your own shopping?: Very easy - How would you describe the ease with which you can get around your house?: Very easy - How would you describe your ability to pay your bills?: Very good - How would you describe you r ability to plan your daily and monthly budgets?: Very good - How would you describe your ability to do routine housework?: Very good HOME SAFETY/ASSISTANCE: - - Do you feel like you are safe in your current home?: Yes - How many times have you fallen in your home?: Never - How much would you need to change your living circumstances to feel safe?: Not at all - Do you feel that living somewhere else would be good for you?: No - How much help do you feel you need at home?: None at all - How much does your family help with da hollie or routine chores?: Not at all Immunization Status addressed -: Yes Vision Screening -: Not done Depression Screening -: PHQ9 done Hearing Screening -: Not done Fall Risk and Home Safety -: Negative, n o falls in the past year, no difficulty walking, or getting out of bed or chair Medication evaluation and reconcilliatio n performed: Yes Vision screening recommended: Yes Literature offered to the patient: Yes Referrals: physical therapy offered for gait balance and mobility evaluation, fall prevention home evauation offered, DEXA screening offered Get Up and Go Evaluation: under 20 secon ds Psychosocial Risks -: No overt psychoso cial risks shown, observed, or mentioned Behavioral Risks -: Patient seems ling y well adjusted and no behavorial issues noted Activities of daily living -: Not impaired Cognitive Screening -: No overt cognitiv e deficiency is apparent by direct observation Patient Care Team - No Providers on Record Internal Medicine Pia is a 79 year [...] Normal Psychiatry Normal OROPHARYNX Normal SINUSES Normal 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
--- OUTSIDE RECORDS SUMMARY | 2024-12-08 11:30 | XMS_ITS ---
Author Organization [facility] Address [address] [place] [address] Care Team Providers Care Packaging Coordinator Name Role Phone DWAYNE SAMS Primary Care Provider [phone] Allergies No Known Allergies REASON FOR VISIT Medicare Wellness Medications Medication SIG (Take, Route, Frequency, Duration) Notes Start Date End Date Status Voltaren - - as directed Externally Apply 2 grams to affected area twice a day as needed; Duration: 30 days 09/12/2020 Not-Taking Lisinopril 10 MG 1 tablet Orally Once a day; Duration: 30 Not-Taking Meclizine HCl 12.5 MG 1 tablet as needed Orally every 12 hrs; Duration: 30 days 05/29/2023 Active Super B Complex one daily Not- Taking Metoprolol Succinate ER 50 MG 1 tablet Orally Once a day; Duration: 90 days Active Latanoprost 0.005 % 1 drop into affected eye in the evening Ophthalmic Once a day Active Aspirin Adult Low Strength 81 MG 1 tablet Orally Once a day; Duration: 30 day(s) Active Timolol Maleate 0.5 % (DAILY) 1 drop into affected eye Ophthalmic Once a day Active Caltrate 600+D 600-800 MG-UNIT 1 tablet with a meal Orally Once a day; Duration: 30 day(s) Active Nitroglycerin 0.4 MG as directed Sublingual Active Rosuvastatin Calcium 10 MG 1 tablet Orally Once a day Active Culturelle - as directed Orally one capsule daily Active B Complex - as directed Orally Active Alendronate Sodium 70 MG 1 tablet 30 min utes before the first food, beverage or medicine of the day dissolved in 4 ounces of water Orally Once a week Active Vitamin D3 50 MCG (1999 UT) 1 tablet Orally Once a day Active Social History Tobacco Use: Social History [...] Notes: i glass of wine a night Vital Signs Temperature 96.6 degrees Fahrenheit 12/09/19 25 Oximetry 99 % 12/08/2024 Heart Rate 65 /min 12/08/2024 Blood pressure systolic 100 mm Hg 12/09/19 25 Blood pressure diastolic 72 mm Hg 025 Weight 111.4 lbs 12/08/2024 BMI 24.1 kg/m2 12/08/2024 Height 57.01 in 12/08/2024 Encounters Encounter Location Date Provider Diagnosis [facility] [address] [address] 12/08/2024 DWAYNE SAMS Encounter for genera l adult medical examination without abnormal findings Z00.00 ; Essential hypertension I10 ; Impaired fasting blood sugar R73.01 ; Hyperlipidemia, mixed E78.2 ; Coronary artery disease involving salt river coronary artery of salt river heart without angina pectoris I25.10 ; Absolute glaucoma, 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 Coronary artery disease/hyperten migue/hyperlipide ankit. She is stable and she is on metoprolol ER 50 mg 1 tablet daily, aspirin 81 mg daily, rosuvastatin 10 mg daily. Advised appropriate hydration and she follows up with medicine technologist. Glaucoma. Stable on current regimen. Osteoporosis. She follows up with Dr. Butcher and she is on alendronate 70 mg 1 tablet weekly. Gait instability. She follows up with neurology and she uses a cane to walk. Impaired fasting glucose. Dietary restrictions discussed with the patient and check A1c. Alcohol use. She drinks 1 glass of wine every day. We discussed side effects of alcohol and considering her history of gait instability it may increase the risk of falls. Advised to drink on occasions and abstinence encouraged. She is up-to-date on age specific screening. She is full code and her daughter is her healthcare proxy. 12/08/2024 Essential hypertension (ICD-10 - I10) Pia is 79 years old lady with coronary artery disease and status post stent placement, hyperlipidemia, hypertension, glaucoma, celiac disease, gait instability and follows up with neurology easier today for annual physical. Coronary artery disease/hyperten migue/hyperlipide ankit. She is stable and she is on metoprolol ER 50 mg 1 tablet daily, aspirin 81 mg daily, rosuvastatin 10 mg daily. Advised appropriate hydration and she follows up with medicine technologist. Glaucoma. Stable on current regimen. Osteoporosis. She follows up with Dr. Butcher and she is on alendronate 70 mg 1 tablet weekly. Gait instability. She follows up with neurology and she uses a cane to walk. Impaired fasting glucose. Dietary restrictions discussed with the patient and check A1c. Alcohol use. She drinks 1 glass of wine every day. We discussed side effects of alcohol and considering her history of gait instability it may increase the risk of falls. Advised to drink on occasions and abstinence encouraged. She is up-to-date on age specific screening. She is full code and her daughter is her healthcare proxy. 12/08/2024 Impaired fasting blood sugar (ICD-10 - R73.01) Pia is 79 years old lady with coronary artery disease and status post stent placement, hyperlipidemia, hypertension, glaucoma, celiac disease, gait instability and follows up with neurology easier today for annual physical. Coronary artery disease/hyperten migue/hyperlipide ankit. She is stable and she is on metoprolol ER 50 mg 1 tablet daily, aspirin 81 mg daily, rosuvastatin 10 mg daily. Advised appropriate hydration and she follows up with medicine technologist. Glaucoma. Stable on current regimen. Osteoporosis. She follows up with Dr. Butcher and she is on alendronate 70 mg 1 tablet weekly. Gait instability. She follows up with neurology and she uses a cane to walk. Impaired fasting glucose. Dietary restrictions discussed with the patient and check A1c. Alcohol use. She drinks 1 glass of wine every day. We discussed side effects of alcohol and considering her history of gait instability it may increase the risk of falls. Advised to drink on occasions and abstinence encouraged. She is up-to-date on age specific screening. She is full code and her daughter is her healthcare proxy. 12/08/2024 Hyperlipidemia, mixed (ICD-10 - E78.2) Pia is 79 years old lady with coronary artery disease and status post stent placement, hyperlipidemia, hypertension, glaucoma, celiac disease, gait instability and follows up with neurology easier today for annual physical. Coronary artery disease/hyperten migue/hyperlipide ankit. She is stable and she is on metoprolol ER 50 mg 1 tablet daily, aspirin 81 mg daily, rosuvastatin 10 mg daily. Advised appropriate hydration and she follows up with medicine technologist. Glaucoma. Stable on current regimen. Osteoporosis. She follows up with Dr. Butcher and she is on alendronate 70 mg 1 tablet weekly. Gait instability. She follows up with neurology and she uses a cane to walk. Impaired fasting glucose. Dietary restrictions discussed with the patient and check A1c. Alcohol use. She drinks 1 glass of wine every day. We discussed side effects of alcohol and considering her history of gait instability it may increase the risk of falls. Advised to drink on occasions and abstinence encouraged. She is up-to-date on age specific screening. She is full code and her daughter is her healthcare proxy. 12/08/2024 Coronary artery disease involving salt river coronary artery of salt river heart without angina pectoris (ICD-10 - I25.10) Pia is 79 years old lady with coronary artery disease and status post stent placement, hyperlipidemia, hypertension, glaucoma, celiac disease, gait instability and follows up with neurology easier today for annual physical. Coronary artery disease/hyperten migue/hyperlipide ankit. She is stable and she is on metoprolol ER 50 mg 1 tablet daily, aspirin 81 mg daily, rosuvastatin 10 mg daily. Advised appropriate hydration and she follows up with medicine technologist. Glaucoma. Stable on current regimen. Osteoporosis. She follows up with Dr. Butcher and she is on alendronate 70 mg 1 tablet weekly. Gait instability. She follows up with neurology and she uses a cane to walk. Impaired fasting glucose. Dietary restrictions discussed with the patient and check A1c. Alcohol use. She drinks 1 glass of wine every day. We discussed side effects of alcohol and considering her history of gait instability it may increase the risk of falls. Advised to drink on occasions and abstinence encouraged. She is up-to-date on age specific screening. She is full code and her daughter is her healthcare proxy. 12/08/2024 Absolute glaucoma, bilateral (ICD-10 - H44.513) Pia is 79 years old lady with coronary artery disease and status post stent placement, hyperlipidemia, hypertension, glaucoma, celiac disease, gait instability and follows up with neurology easier today for annual physical. Coronary artery disease/hyperten migue/hyperlipide ankit. She is stable and she is on metoprolol ER 50 mg 1 tablet daily, aspirin 81 mg daily, rosuvastatin 10 mg daily. Advised appropriate hydration and she follows up with medicine technologist. Glaucoma. Stable on current regimen. Osteoporosis. She follows up with Dr. Butcher and she is on alendronate 70 mg 1 tablet weekly. Gait instability. She follows up with neurology and she uses a cane to walk. Impaired fasting glucose. Dietary restrictions discussed with the patient and check A1c. Alcohol use. She drinks 1 glass of wine every day. We discussed side effects of alcohol and considering her history of gait instability it may increase the risk of falls. Advised to drink on occasions and abstinence encouraged. She is up-to-date on age specific screening. She is full code and her daughter is her healthcare proxy. 12/08/2024 Gait instability (ICD-10 - R26.81) Pia is 79 years old lady with coronary artery disease and status post stent placement, hyperlipidemia, hypertension, glaucoma, celiac disease, gait instability and follows up with neurology easier today for annual physical. Coronary artery disease/hyperten migue/hyperlipide ankit. She is stable and she is on metoprolol ER 50 mg 1 tablet daily, aspirin 81 mg daily, rosuvastatin 10 mg daily. Advised appropriate hydration and she follows up with medicine technologist. Glaucoma. Stable on current regimen. Osteoporosis. She follows up with Dr. Butcher and she is on alendronate 70 mg 1 tablet weekly. Gait instability. She follows up with neurology and she uses a cane to walk. Impaired fasting glucose. Dietary restrictions discussed with the patient and check A1c. Alcohol use. She drinks 1 glass of wine every day. We discussed side effects of alcohol and considering her history of gait instability it may increase the risk of falls. Advised to drink on occasions and abstinence encouraged. She is up-to-date on age specific screening. She is full code and her daughter is her healthcare proxy. Plan Of Treatment Future Test Test Name Order Date Hemoglobin [id number] 12/08/2024 Albumin/Creatinine Ratio,[id number] Lipid Panel-[id number] 12/08/2024 Comp. Metabolic Panel [id number] 2024 Next Appt Details Follow Up: 6 Months, Reason: Provider Name:DWAYNE SAMS , 06/07/2025 02:45:00 PM, [address] [place] [address], [id number], Progress Notes * Cely FONTANEZenDOB:1945 (79 yo F)Acc No.[id number]:12/08/2024 Progress Note Patient: Lindsay VANCEPia Provider: Ladonna SAMS MD :1945 A ge:79 Y S ex:Female Date:12/08/2024 Address:[address] [place], [place] [id number] Subjective: * Chief Complaints: * [facility] * HPI: D epression Screening: PHQ-9 L ittle interest or pleasure in doing things?Not at all F eeling down, depressed, or hopeless N ot at all T rouble falling or staying asleep, or sleeping too much S everal days F eeling tired or having little energy S everal days P oor appetite or overeating N ot at all F eeling bad about yourself or that you are a failure, or have let yourself or your family down S everal days T rouble concentrating on things, such as reading the newspaper or watching television N ot at all M oving or speaking so slowly that other people could have noticed; or the opposite, being so fidgety or restless that you have been moving around a lot more than usual S everal days T houghts that you would be better off or of hurting yourself in some way N ot at all T otal Score 4 I nterpretation M inimal Depression P atient Care Team: - N o Providers on Record. M josselyn Annual Visit: Type of Visit - S ubseque Annual Wellness Visit Language or Communication barrier addressed - Y es Health Risk Assessment D EMOGRAPHICS - - How old are you? 7 0-79 - How would you best describe your ethnicity??Non- White - How would you describe your marital status?? - How would you describe your employment status? R etired - How many children do you have? t wo R ISK ASSESSMENT - - Do you [...] you drink daily, on average? N one DAILY WINE - Have you ever felt the need [...] o - How often do you exercise? O ften - How vigorously can you exercise? M [...] you ever attempted to harm yourself??No G [facility] HEALTH/PAIN ASSESSMENT - - In the past [...] direct observation I nternal Medicine: Pia is 79 years old lady with coronary artery disease and status post stent placement, hyperlipidemia, hypertension, glaucoma, celiac disease, gait instability and follows up with neurology easier today for annual physical. She is a cane to walk. Her vision is stable when she follows up with photogeologist. She complained of mild hearing loss. Neurocognitive function is stable. No history of falls. She denies any anxiety or depression. She is independent and does not any help with activities of daily living. No other complaints today. * ROS: G eneral/Constitutional: Overall health G [...] d ysuria d enies. * Medical History: * Surgical History: c holecystectomy ear surgery balloon angioplasty x2 * Hospitalization/Major Diagno stic Procedure: * Family History: F ather: , lung cancer, diagnosed with Hypertension. M other: alive, hyperlipidemia. * Social History: T obacco Use: T obacco Use/Smoking A re you a f ormer smoker H ow long has it been since you last smoked??> 10 years D rugs/Alcohol: D rugs H ave you used drugs other than those for medical reasons in the past 12 months? N o Alcohol Screen (Audit-C) D id you have a drink containing alcohol in the past year? Y es H ow often did you have a drink containing alcohol in the past year? 4 or more times a week (4 points) H ow many drinks did you have on a typical day when you were drinking in the past year? 1 or 2 drinks (0 point) P oints 4 I nterpretation P ositive M iscellaneous: E xercise: Patient exercises. walks. Living with: alone. i glass of wine a night. * Medications: T akingB Complex - Capsule as directed Orally Alendronate Sodium 70 MG Tablet Effervescent 1 tablet 30 minutes before the first food, beverage or medicine of the day dissolved in 4 ounces of water Orally Once a week Rosuvastatin Calcium 10 MG Tablet 1 tablet Orally Once a day Culturelle - Capsule as directed Orally one capsule daily Vitamin D3 50 MCG (1999 UT) Tablet Chewable 1 tablet Orally Once [...] capsule daily Taking Vitamin D3 50 MCG (1999 UT) Tablet Chewable 1 tablet Orally Once [...] reviewed and reconciled with the patient * Allergies: N .K.D.A.no[Allergies Verified] Objective: * Vitals: T emp: 96.6 F, Oxygen sat %: 99 %, HR: 65 /min, BP: 100/72 mm Hg, Wt: 111.4 lbs, BMI: 24.1 Index, Ht: 57.01 in. * P ast Orders: L ab:Hemoglobin [id number] (Order Date - 09/07/2023) (Collection Date & Time - 04/07/2024 01:18 PM) Value Reference Range Hemoglobin A1c/ Hemoglobin total 6.3 H 4.8-5.6 - % L ab:Hgb A1c with eAG Estimation-[id number] (Order Date - 09/02/2023) (Collection Date & Time - 09/02/2023 11:47 AM) Value Reference Range Hemoglobin A1c 6.4 H 4.8-5.6 - % Estim. Avg Glu (eAG) 137 - mg/dL L ab:Albumin/Creatinine Ratio,[id number] (Order Date - 09/02/2023) (Collection Date & Time - 09/02/2023 11:47 AM) Value Reference Range Creatinine, Urine 86.1 Not Estab. - mg/dL Albumin, Urine 5.5 Not Estab. - ug/mL Alb/Creat Ratio 6 0-29 - mg/g creat L ab:LP+Non-HDL Cholesterol-[id number] (Order Date - 09/02/2023) (Collection Date & Time - 09/02/2023 11:47 AM) Value Reference Range Cholesterol, Total 168 100-199 - mg/dL Triglycerides 102 0-149 - mg/dL HDL Cholesterol 60 >39 - mg/dL VLDL Cholesterol Hung 18 5-40 - mg/dL LDL Chol Calc (NIH) 90 0-99 - mg/dL Non-HDL Cholesterol 108 0-129 - mg/dL L ab:Comp. Metabolic Panel [id number] (Order Date - 09/02/2023) (Collection Date & Time - 09/02/2023 11:47 AM) Value Reference Range Glucose 112 H 70-99 - mg/dL BUN 14 8-27 - mg/dL Creatinine 0.89 0.57-1.00 - mg/dL BUN/Creatinine Ratio 16 12-28 - Sodium 139 134-144 - mmol/L Potassium 5.4 H 3.5-5.2 - mmol/L Chloride 101 96-106 - mmol/L Anion Gap 17.0 10.0-18.0 - mmol/L Carbon Dioxide, Total 21 20-29 - mmol/L Calcium 9.4 8.7-10.3 - mg/dL Protein, Total 6.9 6.0-8.5 - g/dL Albumin 4.3 3.8-4.8 - g/dL Globulin, Total 2.6 1.5-4.5 - g/dL A/G Ratio 1.7 1.2-2.2 - Bilirubin, Total 0.4 0.0-1.2 - mg/dL Alkaline Phosphatase 62 44-121 - IU/L AST (SGOT) 36 0-40 - IU/L ALT (SGPT) 23 0-32 - IU/L eGFR 67 >59 - mL/min/1.73 * Examination: G eneral Examination: GENERAL APPEARANCE: [...] MALE GENITOURINARY: _ _. PODIATRIC: N ormal. 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 Assessment: * Assessment: 1. E ncounter for general adult medical examination without abnormal findings - Z00.00 (Primary) 2 . E ssential hypertension - I10 3 . I mpaired fasting blood sugar - R73.01 4 . H yperlipidemia, mixed - E78.2 5 . C oronary artery disease involving salt river coronary artery of salt river heart without angina pectoris - I25.10 6 . A bsolute glaucoma, bilateral - H44.513 7 . G ait instability - R26.81 Pia is 79 years old lady with coronary artery disease and status post stent placement, hyperlipidemia, hypertension, glaucoma, celiac disease, gait instability and follows up with neurology easier today for annual physical. Coronary artery disease/hypertension/hyperlipidemia. She is stable and she is on metoprolol ER 50 mg 1 tablet daily, aspirin 81 mg daily, rosuvastatin 10 mg daily. Advised appropriate hydration and she follows up with medicine technologist. Glaucoma. Stable on current regimen. Osteoporosis. She follows up with Dr. Butcher and she is on alendronate 70 mg 1 tablet weekly. Gait instability. She follows up with neurology and she uses a cane to walk. Impaired fasting glucose. Dietary restrictions discussed with the patient and check A1c. Alcohol use. She drinks 1 glass of wine every day. We discussed side effects of alcohol and considering her history of gait instability it may increase the risk of falls. Advised to drink on occasions and abstinence encouraged. She is up-to-date on age specific screening. She is full code and her daughter is her healthcare proxy. Plan: * Treatment: 2. I mpaired fasting blood sugar L AB: Hemoglobin [id number] (Ordered for 12/08/2024) * Procedure Codes: G 0439 ANNUAL WELLNESS VST; PPS SUBSQT [id number] ACP DISCUSS/DSCN MKR [id number] BMI<30 AND >=22 CALC & [id number] NEG SCR D PT NOT ELIG F/U/PLN [id number] ELDER MALTX SCR DOC NEG NO F/U [id number] Pt scrn tbco id as non [id number] MOST RECENT SYSTOLIC BP < 140MM [id number] MOST RECENT DIASTOLIC BP < 90MM [id number] NORMAL BP READING DOC F/U NOT [id number] PAIN ASSESS DOC NEG NO F/U PLAN [id number] DOC MEDS VERIFIED W/PT OR [id number] FALL RISK ASSESSMENT [id number] PT FALLS ASSESS-DOC'D LE1/[id number] FXNL STATUS [id number] MENTAL STATUS [id number] ANNUAL DEPRESSION SCREENING 15 [id number] PT SCRND [place] [id number] CURRENTLY A TOBACCO NON-USER * Preventive Medicine: YOUR PREVENTIVE WELLNESS PLAN: B ME, Height, and Weight: The Recommended Frequency is: [...] f ollow-up instructions, handouts, referrals. C OVID - () 2020, (2021 FLU - 2023 TDAP -UNKNOWN SHINGRIX- 2022 RSV - NO WIG DRESSER - Over 5 years ago Colonoscopy - 2018 [place] BMD - 2024 [facility] MAMMOGRAM - 2024 [facility] BREAST AND WELLNESS EYE EXAM - 2024 [facility] EYE CARE This plan was discussed, printed, and handed to patient. * Follow Up: 6 Months * Images: * Sign off status: Completed true * Provider: Ladonna SAMS MD Date: 0 12/08/2024 Generated for Beto mcdowell/Luciana/eTransmitting on: 0 12/12/2024 08:53 PM EDT History and Physical Notes * HPI (History of Present Illness) Category Sub-Category Detail Notes Category Not es Depression Screening PHQ-9 Little inte rest or pleasure in doing things: Not at all Feeling down, depressed, or hopeless: No t at all Trouble falling or staying asleep, or sl eeping too much: Several days Feeling tired or having little energy: S everal days Poor appetite or overeating: Not at all Feeling bad about yourself o r that you are a failure, or have let yourself or your family down: Several days Trouble concentrating on thi ngs, such as reading the newspaper or watching television: Not at all Moving or speaking so slowly that other people could have noticed; or the opposite, being so fidgety or restless that you have been moving around a lot more than usual: Several days Thoughts that you would be b woodrow off or of hurting yourself in some way: Not at all Total Score: 4 Interpretation: Minimal Depression Medicare Annual Visit Type of Visit -: Subsequent Annual [facility] Visit Language or Communication barrier addressed -: Y es Health Risk Assessment DEMOGRAPHICS: - - How old are [age]?: [age] - How would you best describe your ethni city?: Non- White - How would you describe your marital st atus?: - How would you describe your employment status?: Retired - How many children do you have?: two RISK ASSESSMENT: - - Do you currently [...] do you drink daily, on average?: None DAILY WINE - Have you ever felt the need [...] No - How often do you exercise?: Often - How vigorously can you exercise?: Mini josé miguel - How often do you use seatbelts?: [place] s - In the past month, how [...] - On a scale of 1-10, how ba d would you rate your average daily pain?: No pain - How would you describe the ease with which you can prepare your own food?: Very easy - How would you describe the ease with which you can bathe or clean yourself?: Very easy - How would you describe the ease with which you can dress yourself?: Very easy - [...] Providers on Record Internal Medicine Pia is 79 years old lady with coronary artery disease and status post stent placement, hyperlipidemia, hypertension, glaucoma, celiac disease, gait instability and follows up with neurology easier today for annual physical. She is a cane to walk. Her vision is stable when she follows up with photogeologist. She complained of mild hearing loss. Neurocognitive function is stable. No history of falls. She denies any anxiety or depression. She is independent and does not any help with activities of daily living. No other complaints today. 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
--- NOTE | 2024-12-12 15:25 | A.OFFVIS_ITS ---
Vital Signs 12/12/24 15:26 Height 4 ft 9 in Weight 114 lb 6 oz BMI 24.7 BP 110/68 Blood Pressure Location Rt brachial Position Sitting Pulse 62 Pulse Source Pulse Oximeter Pulse Oximetry (%) 97 Oxygen Delivery Method Room Air Intake Visit Reasons: follow up Movement Disorder Intake Note: Follow up Gait abnormality Funeral Professional Required: No Accompanied by: Self / Same As Patient Allergies No Known Allergies Allergy (Verified 12/12/24 15:25) HPI Comments Details: 79y/o female comes for F/u . she was seen by Neurospine who suggested surgery - suggested cervical fusion C5-6 ( images from 2021 was compared to images from 2024 and showed progression.Patient declined did not think she was a candidate for botox. 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 she also had multiple falls.she was seen at [facility] Neurology , had a trial of carbidopa/ levodopa for 3 months and had large volume LP with no response. she has some low back pain - sees [facility] treatment center. she denies any radiating pain. she has tingling in her feet when she is sleeping. No neck issues She denies any tremors. She denies any family h/o gait problems. she denies double vision , denies vertigo. SHe has occasional dizziness.she denies any speech or swallowing issues. Bowel movements are stable she has urinary urgency . she was seen by and Dr. Santoro at [facility]. 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 she used to do ballet and dancing as a child. 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 [facility] Medical History Cervical spondylosis Lumbar spondylosis with myelopathy Gait abnormality Paraparesis Diarrhea Gait instability Glaucoma CAD (coronary artery disease) HTN (hypertension) Hyperlipidemia Surgical History History of heart artery stent H/O angioplasty Social History Alcohol intake: current Comment: occasional wine Patient Tobacco Use Status: Never used Tobacco Current occupational status: retired Current occupation: left hand Physical Exam Vital Signs: Last Vital Signs Pulse 62 12/12/24 15:26 BP 110/68 12/12/24 15:26 Pulse Ox 97 12/12/24 15:26 Oxygen Delivery Method Room Air 12/12/24 15:26 BMI result Body Mass Index 24.7 Const General: cooperative, healthy appearing, comfortable and no acute distress Nutritional Appearance: average body habitus Orientation/consciousness: patient oriented x3 Eyes Pupils: Equal, round and reactive pupils present Neuro Other: Gait- small steps guarded , narrow base , slow , drags her feet , like she has partial foot drop Dorsiflexion 4/5 plantar flexion 5/5 Mild increased tone rachid LE L>R Mild droopy eyelids General: patient oriented x3 and moves all extremities Cranial nerves: Yes Facial sensation intact/muscles of mastication intact, Yes Equal, round and reactive pupils present, Yes Bilaterally intact EOM present, Yes Nystagmus not present, Yes Normal facial strength present, Yes Midline tongue present, Yes Symmetric palate elevation present and Yes Ability to bilaterally elevate shoulders present Cognition (Neuro): normal cognition Motor exam (neuro): 5/5 motor strength present throughout Deep tendon reflexes (DTR's): Right triceps reflex intensity grade: 2+, Left triceps reflex intensity grade: 2+, Rt Biceps (C5, C6): 2+, Left biceps reflex intensity grade: 2+, Right brachioradialis reflex intensity grade: 2+, Left brachioradialis reflex intensity grade: 2+, Right patellar reflex intensity grade: 3+, Left patellar reflex intensity grade: 3+ and Right ankle reflex intensity grade: 3+ Coordination: [id number] test normal Results Reviewed Results Reviewed: MRI C spine 08/23/24 C5/6 Central disc herniation measuring up to 5 mm in AP dimension superimposed on short pedicles causes moderate central canal compromise. Midsagittal dimension of the thecal sac measures 8 mm and there is effacement of the CSF and flattening of the cord. Mild central canal compromise at C4/C5 and C6/C7. Assessment & Plan Assessment & Plan (1) Paraparesis: Comment: with mild spasticty ? 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 Geronimo for possible Botox for her LE Orders: Referrals Neurology Referral G82.20 - Paraplegia, unspecified, M47.812 - Spondylosis without myelopathy or radiculopathy, cervical region Physiatry Referral G82.20 - Paraplegia, unspecified, M47.812 - Spondylosis without myelopathy or radiculopathy, cervical region Coding Level of Care Code Est Pt Level 4 (84462) Complex EM visit Add On G2211 Diagnoses Paraparesis G82.20 Gait abnormality R26.9
[2024-12-12 15:26] VITALS: BP 110/68; PULSE 62; O2SAT 97; BMI 24.7
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
--- OUTSIDE RECORDS SUMMARY | 2024-12-12 20:53 | XMS_ITS | Clinical Summary ---
Author Organization [facility] Address [address] [place] [address] Care Team Providers Care Retail Sales Vitamin Consultant Name Role Phone Dwayne Sams MD Primary Care Provider [phone] Medications rosuvastatin (CRESTOR) 10 mg tablet TAKE 1 TABLET BY MOUTH DAILY 90 tablet 1 08/08/2024 Active metoprolol succinate (Toprol XL) 50 mg 24 hr tablet Take 1 tablet (50 mg total) by mouth 1 (one) time each day. Do not crush or chew. 90 each 1 11/09/2024 Active Social History Tobacco Use Types Packs/Day Years [...] 11/03/2023 1:51 PM EDT Plan of Treatment Upcoming Encounters Date Type Department Care Team (Late st Contact Info) Description 12/19/2024 1:30 PM EDT Office Visit [facility] Dr Ye [facility] [address] [place] [address] Jimmy Quiñones MD [address] [place] [address] Dr [address] [place] [address] Health Maintenance Due Date Last Done Comments DTaP,Tdap,and Td Vaccines (1 - Tdap) 1966 Pneumococcal Vaccine: 50+ Years (1 of 1 - PCV) 1997 Zoster Vaccines (1 of 2) 1997 RSV Immunization Adult Patients (1 - 1-dose 75+ series) 2022 Cholesterol Screening (Lipid Panel) 03/09/2022 Falls Risk Assessment 03/09/2022 Hepatitis C Screening 03/09/2022 Hypertension/CHF/CAD Annual BMP Blood Test 03/09/2022 Social Influencers of Health Screening 03/09/2022 Medicare Annual Wellness Visit 09/05/2023 09/04/2022 Depression Screening 03/30/2024 COVID-19 Vaccine (1 - 2023-2 5 season) 2024 Influenza Vaccine (#1) 2024 2, 01/01/2017 Osteoporosis Screening (Bone Density Screening) 10/03/2032 [...] Recently Relevant to Health Maintenance Results * [facility] DEXA AXIAL SKELETON (10/03/2022 7:39 AM EDT) Anatomical Region Laterality Modality Mammography 10/02/2022 1:34 PM EDT Narrative 10/03/2022 7:39 AM EDT [facility] Diagnostic Imaging Department [address] [place] [address] Patient: DONYUEFLORI Stacey Marroquin./Age/Sex: 1945 - 77 - F Unit#: [id number] [facility] Ordering Physician: DWAYNE SAMS MD [facility] Dexa Axial Skeleton - 10/02/22 - [id number] Report Status:Signed HISTORY: The patient is a [...] probability of hip fracture of 8.1%. Code 90687 Dictating Physician: BRANT VILLALBA MD Electronically Signed by: BRANT VILLALBA MD Dic Date/Time: 10/03/22737 Sign date/Time: 10/03/22738 Procedure Note Brant Villalba MD - 05/05/2023 [facility] Diagnostic Imaging Department [address] [place] [address] Patient: FLORI ARAGON./Age/Sex: 1945 - 77 - F Unit#: [id number] Location/Status: SPDIMA/REG CLI Mnemonic[facility] Ordering Physician: DWAYNE SAMS MD [facility] Dexa Axial Skeleton - 10/02/22 - 2885 Report Status:Signed HISTORY: The patient is a [...] density of the femurs bilaterally is 0.831 gm/rz5wbtye is 83% of that of young normals [...] probability of hip fracture of 8.1%. Code 58113 Dictating Physician: BRANT VILLALBA MD Electronically Signed by: BRANT VILLALBA MD Dic Date/Time: 10/03/22 0738 Sign date/Time: 10/03/22 0739 Dwayne Sams MD IMG BI PROCEDURES Final Result from Last 3 Months or Most Recently Relevant to Health Maintenance Insurance MEDICARE [facility] Care Teams Retail Sales Vitamin Consultant Relationship Specialty Start Date End Date Dwayne Sams MD [address] [place] [address] PCP - General 05/10/12
== END 2024-12-12 15:54 | disposition home or self-care (01) ==
LOC: HO.HSMS 15:29
PROVIDERS: PCP Hospitalist; Visit Provider Psychiatry & Neurology Neurology
DX: G82.20 Paraplegia, unspecified (principal); R26.9 Unspecified abnormalities of gait and mobility
CPT/HCPCS: 99214; G2211

== ENCOUNTER → 2024-12-12 15:28 | Outpatient (BNVA) | payer MEDICARE, BC, SELFPAY | PROVIDERS: PCP Hospitalist; Visit Provider Psychiatry & Neurology Neurology | DX: M47.812 Spondylosis without myelopathy or radiculopathy, cervical region (principal); G82.20 Paraplegia, unspecified; M47.16 Other spondylosis with myelopathy, lumbar region; R26.9 Unspecified abnormalities of gait and mobility | CPT/HCPCS: 99212 ==